=== PATIENT | male | born 1980 | race Caucasian/White ===

== ENCOUNTER 2016-10-30 18:10 | Emergency (ER) | payer MEDICARE, BC ==
[~2016-10-30] VITALS: Ht 165.1 cm; Wt 65.0 kg
[2016-10-30 18:24] VITALS: Ht 165.1 cm; Wt 65.0 kg
[2016-10-30 18:33] LABS: ADD SCAN DIFF NO
[2016-10-30 18:34] LABS: BASOPHILS % 0.2 % (0.0-2.0); HEMATOCRIT 49.6 % (42.0-52.0); LYMPHOCYTES # 1.9 10^3/ul (0.8-2.9); LYMPHOCYTES % 17.1 % (15.0-51.0); MEAN CORPUSCULAR HEMOGLOBIN 31.1 pg (29.0-33.0); MEAN CORPUSCULAR HGB CONC 34.3 g/dl (32.0-37.0); MEAN CORPUSCULAR VOLUME 90.8 fl (82.0-101.0); MONOCYTE # 0.9 10^3/ul (0.3-0.9); MONOCYTES % 8.3 % (0.0-11.0); NEUTROPHIL # 8.2 10^3/ul (1.6-7.5); PLATELET COUNT 292 10^3/UL (140-415); RED BLOOD COUNT 5.46 10^6/ul (4.70-6.10); RED CELL DISTRIBUTION WIDTH 11.5 % (11.5-14.5); WHITE BLOOD COUNT 11.1 10^3/ul (4.8-10.8)
[2016-10-30 18:55] LABS: ALBUMIN 4.9 g/dl (3.3-4.9); ALBUMIN/GLOBULIN RATIO 1.4; BILIRUBIN,INDIRECT 0.5 mg/dl (0-1.1); BILIRUBIN,TOTAL 0.5 mg/dl (0.2-1.3); CALCIUM 9.2 mg/dl (8.4-10.2); CARBAMAZEPINE (TEGRETOL) 4.9 ug/ml (8.0-12.0); CREATININE 0.81 mg/dl (0.61-1.24); POTASSIUM 3.2 mmol/L (3.5-5.1); TOTAL PROTEIN 8.4 g/dl (6.1-8.1)
--- NOTE | 2016-10-30 18:59 | RADRPT ---
PROCEDURE: CT brain without contrast CLINICAL INDICATION: Dizziness, hydrocephalus, status post AUTHORIZATION MANAGER shunt TECHNIQUE: CT of the brain without contrast was performed on a multidetector CT scanner, with multi planar reformats. One or more of the following dose reduction techniques were used: Automated expos ure control, adjustment in mA and / or kV according to patient size, use of iterative reconstructive technique. CTDIvol = 45 mGy; DLP = 900 mGy-cm. 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 Prominence of the extra-axial space continues posterior - inferi amanda on the right along the parasagittal parietal - occipital regions where is also contiguous with the right occipital horn. Temporal horns are not significantly dilated. The posterior fossa is sma ll with descent of the cerebellar tonsils below the expected location of the foramen magnum. The po sterior margin of the foramen magnum appears blunted and there may also be absence of the posterior aspect of C1 with overlying postoperative soft tissue changes likely related to a Chiari decompressi on surgery. The mass intermedia may also be a enlarged. The constellation of findings suggest a Ch iari, possibly Chiari 2 malformation. There is a small calcification in the left frontal periventric ular region. No acute intracranial hemorrhage is identified. No extra-axial fluid collection is seen. No signif icant mass effect or midline shift is identified. Otherwise raygoza-white differentiation is grossly p reserved. The rest of the osseous structures appear intact. Mastoids and imaged paranasal sinuses are grossly clear. IMPRESSION: 1. No acute intracranial pathology identified. 2. Dysmorphic brain detailed above with callosal agenesis/severe dysgenesis, asymmetric enlargement of the lateral ventricles, right greater than left, with right lateral ventricle contiguous with pr ominence of the extra-axial space in the interhemispheric/parasagittal regions, and additional findi ngs suggesting an underlying Chiari malformation. 3. Right transparietal shunt catheter as described above. 4. Small left frontal periventricular calcification, possibly post infectious - inflammatory. 5. Findings suggesting prior Chiari decompression surgery. 6. Correlation with prior imaging is suggested to confirm stability. RPTAT: GG .Migue Oscar MD, Date Time Electronically viewed and signed by .Migue Oscar MD, on 10/30/2016 18:58 .O/
--- NOTE | 2016-10-30 19:45 | ERD ---
ER Documentation Chief Complaint Date/Time DATE: 10/30/16 TIME: 19:44 Chief Complaint HAS BEEN WEAK X 1 WEEK AND FELL TODAY HPI History is supplemented by the primarily caregivers from the alf where he lhas resided for four years with no medical problems. 36-year-old male with a history of SOIL ENGINEER shunt and seizure disorder presents to the ED via ambulance for evaluation of headache and weakness. According to caregivers he has lived in the house for approximately 4 years with no acute complaints. Over the last week he has complained of intermittent headaches and generalized weakness. He apparently had an unwitnessed fall today but denies any injuries. He complains of a mild generalized headache but denies visual changes, focal weakness or numbness. Denies neck or back pain. No chest pain or palpitations. Denies abdominal pain, nausea, vomiting, diarrhea or constipation. No URI symptoms or cough. No seizures. No fevers or chills. ROS All systems reviewed and are negative except as per history of present illness. Medications Home Meds Reported Medications Carbamazepine* (Carbamazepine* XR) 200 Mg Tab.er.12h, 200 MG PO TID, #60 TAB.SA 10/30/16 Allergies Allergies: Coded Allergies: No Known Allergy (Unverified , 10/30/16) PMhx/Soc Reviewed in chart. As per HPI. Lives in a alf. History of Surgery: Yes (SOIL ENGINEER shunt) Hx Neurological Disorder: Yes (Hydrocephalus, seizure disorder) Hx Cardiac Disorders: No Hx Psychiatric Problems: No Hx Miscellaneous Medical Probl: No Hx Alcohol Use: No Hx Substance Use: No Hx Tobacco Use: No FmHx Unknown. Not relevant to presenting complaint. Physical Exam Vitals Vital Signs Date Time Temp Pulse Resp B/P Pulse Ox O2 Delivery O2 Flow Rate FiO2 10/30/16 22:30 98.9 60 16 135/84 98 Room Air 10/30/16 21:01 63 16 145/95 98 Room Air 10/30/16 18:24 98.9 61 18 141/97 100 10/30/16 18:15 61 16 131/66 99 Room Air Physical Exam Const: Alert, anxious. Moderate distress. Head: Atraumatic. SOIL ENGINEER shunt reservoir soft. Eyes: Normal Conjunctiva ENT: Normal External Ears, Nose and Mouth. Neck: Full range of motion. No meningismus. Resp: Clear to auscultation bilaterally Cardio: Regular rate and rhythm, no murmurs Abd: Soft, non tender, non distended. Normal bowel sounds Skin: No petechiae or rashes Back: No midline or flank tenderness Ext: No cyanosis, or edema Neur: Awake and alert. Cooperative. Psych: Normal Mood and Affect Result Diagram: 10/30/16181910/30/161819 Results 24 hrs Laboratory Tests Test 10/30/16 18:20 White Blood Count 11.110^3/ul Red Blood Count 5.4610^6/ul Hemoglobin 17.0g/dl Hematocrit 49.6% Mean Corpuscular Volume 90.8fl Mean Corpuscular Hemoglobin 31.1pg Mean Corpuscular Hemoglobin Concent 34.3g/dl Red Cell Distribution Width 11.5% Platelet Count 25193^3/UL Mean Platelet Volume 10.0fl Neutrophils % 74.0% Lymphocytes % 17.1% Monocytes % 8.3% Eosinophils % 0.0% Basophils % 0.2% Nucleated Red Blood Cells % 0.0/100WBC Neutrophils # 8.210^3/ul Lymphocytes # 1.910^3/ul Monocytes # 0.910^3/ul Eosinophils # 0.010^3/ul Basophils # 0.010^3/ul Nucleated Red Blood Cells # 0.010^3/ul Sodium Level 138mmol/L Potassium Level 3.2mmol/L Chloride Level 98mmol/L Carbon Dioxide Level 29mmol/L Anion Gap 14 Blood Urea Nitrogen 7mg/dl Creatinine 0.81mg/dl Glucose Level 140mg/dl Calcium Level 9.2mg/dl Total Bilirubin 0.5mg/dl Direct Bilirubin 0.00mg/dl Indirect Bilirubin 0.5mg/dl Aspartate Amino Transf (AST/SGOT) 31IU/L Alanine Aminotransferase (ALT/SGPT) 81IU/L Alkaline Phosphatase 106IU/L Total Protein 8.4g/dl Albumin 4.9g/dl Globulin 3.50g/dl Albumin/Globulin Ratio 1.40 Carbamazepine (Tegretol) Level 4.9ug/ml Current Medications Medications (Trade) Dose Ordered Sig/Jose Route PRN Reason Start Time Stop Time Status Last Admin Dose Admin Ketorolac Tromethamine (Toradol) 15 mg ONCE STAT IV 10/30/16 20:08 10/30/16 20:10 DC 10/30/16 20:13 Ondansetron HCl (Zofran Inj) 4 mg ONCE STAT IV 10/30/16 20:08 10/30/16 20:10 DC 10/30/16 20:11 Potassium Chloride (Klor-Con 20) 40 meq ONCE STAT PO 10/30/16 21:34 10/30/16 21:35 DC 10/30/16 21:40 PROCEDURE: CT brain without contrast CLINICAL INDICATION: Dizziness, hydrocephalus, status post SOIL ENGINEER shunt TECHNIQUE: CT of the brain without contrast was performed on a multidetector CT scanner, with multiplanar reformats. One or more of the following dose reduction techniques were used: Automated exposure control, adjustment in mA and / or kV according to patient size, use of iterative reconstructive technique. CTDIvol = 45 mGy; DLP = 900 mGy-cm. 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 Prominence of the extra-axial space continues posterior - inferiorly on the right along the parasagittal parietal - occipital regions where is also contiguous with the right occipital horn. Temporal horns are not significantly dilated. The posterior fossa is small with descent of the cerebellar tonsils below the expected location of the foramen magnum. The posterior margin of the foramen magnum appears blunted and there may also be absence of the posterior aspect of C1 with overlying postoperative soft tissue changes likely related to a Chiari decompression surgery. The mass intermedia may also be a enlarged. The constellation of findings suggest a Chiari, possibly Chiari 2 malformation. There is a small calcification in the left frontal periventricular region. No acute intracranial hemorrhage is identified. No extra-axial fluid collection is seen. No significant mass effect or midline shift is identified. Otherwise raygoza-white differentiation is grossly preserved. The rest of the osseous structures appear intact. Mastoids and imaged paranasal sinuses are grossly clear. IMPRESSION: 1. No acute intracranial pathology identified. 2. Dysmorphic brain detailed above with callosal agenesis/severe dysgenesis, asymmetric enlargement of the lateral ventricles, right greater than left, with right lateral ventricle contiguous with prominence of the extra-axial space in the interhemispheric/parasagittal regions, and additional findings suggesting an underlying Chiari malformation. 3. Right transparietal shunt catheter as described above. 4. Small left frontal periventricular calcification, possibly post infectious - inflammatory. 5. Findings suggesting prior Chiari decompression surgery. 6. Correlation with prior imaging is suggested to confirm stability. RPTAT: GG .Migue Oscar MD, Date Time Electronically viewed and signed by .Migue Oscar MD, on 10/30/2016 18:58 .O/ PROCEDURE: ABDOMEN - 1 VIEW CLINICAL INDICATION: 36-year-old male for ventriculoperitoneal shunt evaluation. TECHNIQUE: AP supine view of the abdomen was performed. The images reviewed on a PACS workstation. COMPARISON: Chest x-ray October 30, 2016. FINDINGS: There is a mild right pleural effusion. There is evidence for two ventriculoperitoneal shunt tubes ending within the right upper quadrant. There is a single ventriculoperitoneal shunt tubing identified within the midline of the abdomen continuing into the pelvic region. The tubing is noted to be seen within the left char pelvis. Retained stool is identified throughout the colon without an obstructive pattern. A phlebolith is seen within the left hemipelvis. The osseous structures are unremarkable. IMPRESSION: 1. Mild right pleural effusion. 2. Two ventriculoperitoneal shunt tubes ending within the right upper quadrant. 3. Shunt tubing within the midline of the upper abdomen continuing into the pelvic region with the tubing into the left hemipelvis region. 4. Retained stool. .Da Teixeira MD, Date Time Electronically viewed and signed by .Da Teixeira MD, on 10/30/2016 22:20 .M/ PROCEDURE: XR Chest. CLINICAL INDICATION: shunt continuity TECHNIQUE: AP Portable chest. COMPARISON: No pertinent prior examinations were submitted for comparison. FINDINGS: The cardiomediastinal silhouette is normal. There is mild opacity at the right lung base likely due to atelectasis and effusion. The osseous structures are unremarkable. A ventricular pleural shunt catheter is visualized within the right neck and chest. There is discontinuity of the catheter at the level of the second medial rib. The pieces are by at least 5 mm. Some kinking of the catheter is also noted within the right neck. IMPRESSION: Disrupted ventricular pleural shunt catheter. RPTAT: HIKT .Elliot Sabillon MD, MD Date Time Electronically viewed and signed by .Elliot Sabillon MD, MD on 10/30/2016 22:11 .T/ Procedures/MDM DOCUMENTS REVIEWED: ED nurse, no prior records available CALLS/CONSULTS: Time:20:15. Dr Rose. N/A at 22:00 MEDICAL DECISION MAKIN-year-old male with a history of hydroceohalus, SOIL ENGINEER shunt placed over 15-20 years ago and seizure disorder presents to the ED via ambulance for evaluation of headache and weakness. CT findings as above. Discussed with the radiologist. Although there is no previous CT available for comparison there does not appear to be any signs of acute hydrocephalus. Plain radiographs of the chest and abdomen reveal evidence of disrupted SOIL ENGINEER shunt. No fever, meningismus evidence of meningitis or encephalitis. Symptoms resolved completely with Toradol and Zofran. Carbamazepine level is subtherapeutic but no seizures. A 21:15 he is doing well no further headache. At 22:00 awaiting call from neurosurgery. Although the patient's presentation is consistent with SOIL ENGINEER shunt malfunction he adamantly wants to go home and will follow up with neurology/neurosurgery tomorrow. Caregiver agrees with this plan although they clearly understand that I disagree and would prefer admission for further inpatient evaluation and mangement as his sympyoms may detereorate rapidly.As there are insistent and cannot ensure emergent neurosurgical intervention tonight they insist on discharge with urgent outpatient followup tomorrow. Will discharge with precautionary instructions and urgent outpatient neurology/ neurosurgery follow-up as counseled. Patient and caregiver understand that his symptoms are due to failure of his SOIL ENGINEER shunt which needs to be revised urgently. If they are not able to obtain urgent follow-up or symptoms worsen patient is to return to the ED immediately. He is at risk for significantl rapid deterioration presenting as worsening symptoms including, headache, ataxia, seizures and ALOC which could resuly in herniation and/or permanent neurologic disability or . Again any worsening symptoms should be taken extremely seriously and mandate emergent return to the hospital. Counseled patient and caregiver regarding diagnostic workup, diagnosis and need for followup. They clearly understand that they are disobeying my advice for admission. Furthermore the have verbalized understanding need for urgent outpatient followup and return to ED immediately if symptoms recur, worsen or any other concerns. I fully expect patient to return within 24hours. Departure Diagnosis: Primary Impression: Malfunction of ventriculo-peritoneal shunt Encounter type: initial encounter Qualified Code: T85.09XA - Malfunction of ventriculo-peritoneal shunt, initial encounter Additional Impressions: SOIL ENGINEER (ventriculoperitoneal) shunt status Arnold-Chiari syndrome with hydrocephalus Cephalgia Headache type: unspecified Headache chronicity pattern: episodic headache Intractability: not intractable Qualified Code: R51 - Nonintractable episodic headache, unspecified headache type Weakness Seizure disorder Condition: Stable ZACH HUNTER MD Oct 30, 2016 19:45
[2016-10-30] MEDS ORDERED: CARB200T43 PO (19:53)
[2016-10-30] MEDS ORDERED: KETOROLAC 15 MG INJ IV STA (20:08)
[2016-10-30] MEDS ORDERED: ONDANSETRON 4 MG INJ IV STA (20:08)
[2016-10-30] MEDS ORDERED: POTASSIUM CHLORIDE (SR) 20 MEQ TAB PO STA (21:34)
--- NOTE | 2016-10-30 22:12 | RADRPT ---
PROCEDURE: XR Chest. CLINICAL INDICATION: shunt continuity TECHNIQUE: AP Portable chest. COMPARISON: No pertinent prior examinations were submitted for comparison. FINDINGS: The cardiomediastinal silhouette is normal. There is mild opacity at the right lung base likely due to atelectasis and effusion. The osseous structures are unremarkable. A ventricular pleural shunt catheter is visualized within the right neck and chest. There is discon tinuity of the catheter at the level of the second medial rib. The pieces are by at least 5 mm. Some kinking of the catheter is also noted within the right neck. IMPRESSION: Disrupted ventricular pleural shunt catheter. RPTAT: HIKT .Elliot Sabillon MD, MD Date Time Electronically viewed and signed by .Elliot Sabillon MD, on 10/30/2016 22:11 .T/
--- NOTE | 2016-10-30 22:20 | RADRPT ---
PROCEDURE: ABDOMEN - 1 VIEW CLINICAL INDICATION: 36-year-old male for ventriculoperitoneal shunt evaluation. TECHNIQUE: AP supine view of the abdomen was performed. The images reviewed on a PACS workstatio n. COMPARISON: Chest x-ray October 30, 2016. FINDINGS: There is a mild right pleural effusion. There is evidence for two ventriculoperitoneal sh unt tubes ending within the right upper quadrant. There is a single ventriculoperitoneal shunt tubi ng identified within the midline of the abdomen continuing into the pelvic region. The tubing is not ed to be seen within the left char pelvis. Retained stool is identified throughout the colon without an obstructive pattern. A phlebolith is seen within the left hemipelvis. The osseous structures ar e unremarkable. IMPRESSION: 1. Mild right pleural effusion. 2. Two ventriculoperitoneal shunt tubes ending within the right upper quadrant. 3. Shunt tubing within the midline of the upper abdomen continuing into the pelvic region with the tubing into the left hemipelvis region. 4. Retained stool. .Da Teixeira MD, Date Time Electronically viewed and signed by .Da Teixeira MD, on 10/30/2016 22:20 .M/
[2016-10-30 22:30] VITALS: BP 135/84; PULSE 60; RESP 16; TEMP 98.9
== END 2016-10-30 22:30 | disposition home or self-care (01) ==
LOC: E/R 18:10
DX: T85.09XA Other mechanical complication of ventricular intracranial (communicating) shunt, initial encounter (principal); Q07.02 Arnold-Chiari syndrome with hydrocephalus; R51 Headache; G40.909 Epilepsy, unspecified, not intractable, without status epilepticus; Y75.8 Miscellaneous neurological devices associated with adverse incidents, not elsewhere classified; Z98.2 Presence of cerebrospinal fluid drainage device
CPT/HCPCS: 70450; 71010; 74000; 80053; 80156; 85025; J1885; J2405; 36415; 96374; 96375

== ENCOUNTER 2016-10-31 08:49 | Inpatient (IN) | payer MEDICARE, BC ==
[~2016-10-31] VITALS: Ht 167.6 cm; Wt 66.0 kg
[~2016-10-31 08:49] MED LIST: CARB200T43 PO
[2016-10-31 09:01] VITALS: Ht 167.6 cm; Wt 66.0 kg
[2016-10-31] MEDS ORDERED: ACETAMINOPHEN 325 MG TAB PO ONE (10:00)
--- NOTE | 2016-10-31 10:52 | RADRPT ---
PROCEDURE: Chest Radiograph. CLINICAL INDICATION: Chest and abdominal pain. TECHNIQUE: Single frontal chest radiograph. COMPARISON: Chest radiograph 10/30/2016 FINDINGS: The patient is rotated. Heart size is poorly evaluated but appears grossly within normal limits. A left lung is clear. There is worsening opacification of the right lung base consistent with worseni ng pleural effusion and/or adjacent atelectasis/infiltrate. A catheter is overlying the left neck as well as redundant catheters overlying the left chest wall. These are stable compared to prior s tudy. IMPRESSION: 1. Mildly worsening right basilar pleural / parenchymal disease when compared to 10/30/2016. 2. Otherwise stable radiographic appearance of the chest. RPTAT: KK .Evangelist Srinivasan MD, MD Date Time Electronically viewed and signed by .Evangelist Srinivasan MD, on 10/31/2016 10:51 .B/
[2016-10-31 10:55] LABS: ADD SCAN DIFF NO
[2016-10-31 11:04] LABS: BASOPHILS % 0.2 % (0.0-2.0); EOSINOPHILS % 0.1 % (0.0-7.0); HEMATOCRIT 46.4 % (42.0-52.0); HEMOGLOBIN 16.3 g/dl (14.0-18.0); LYMPHOCYTES # 1.4 10^3/ul (0.8-2.9); LYMPHOCYTES % 12.7 % (15.0-51.0); MEAN CORPUSCULAR HEMOGLOBIN 32.1 pg (29.0-33.0); MEAN CORPUSCULAR HGB CONC 35.1 g/dl (32.0-37.0); MEAN CORPUSCULAR VOLUME 91.3 fl (82.0-101.0); MONOCYTES % 9.3 % (0.0-11.0); NEUTROPHIL # 8.5 10^3/ul (1.6-7.5); NEUTROPHILS % 77.2 % (39.0-77.0); PLATELET COUNT 288 10^3/UL (140-415); RED BLOOD COUNT 5.08 10^6/ul (4.70-6.10); RED CELL DISTRIBUTION WIDTH 11.4 % (11.5-14.5)
[2016-10-31 11:24] LABS: INR 1.11; PROTIME 14.3 Sec (12.2-14.2); PT RATIO 1.1
[2016-10-31 11:25] LABS: PARTIAL THROMBOPLASTIN TIME 26.3 Sec (25.0-35.0)
[2016-10-31 11:27] LABS: ANION GAP 14 (8-16); BLOOD UREA NITROGEN 7 mg/dl (7-20); CARBON DIOXIDE 29 mmol/L (21-31); CHLORIDE 99 mmol/L (97-110); GLUCOSE 141 mg/dl (70-220); POTASSIUM 3.5 mmol/L (3.5-5.1); SODIUM 138 mmol/L (135-144)
[2016-10-31 11:48] LABS: TROPONIN-I < 0.012 ng/ml (0.00-0.12)
[2016-10-31] MEDS ORDERED: ONDANSETRON 4 MG INJ IV PRN ×2 (13:00→16:00)
[2016-10-31] MEDS ORDERED: ACETAMINOPHEN 325 MG TAB PO PRN (13:00)
--- NOTE | 2016-10-31 13:37 | ERA ---
ER Documentation Chief Complaint Date/Time DATE: 10/31/16 TIME: 13:34 Chief Complaint BIBA C/O BACK PAIN 08/26; HX CHRONIC BACK PAIN. HPI Patient is a 36-year-old male with a history of a SAMPLE PREPARATION SUPERVISOR shunt and back pain who presents with headache and back pain. The patient was seen here yesterday for the same and signed out AGAINST MEDICAL ADVICE as Dr. Carlos want the patient to be admitted. He had a workup for his SAMPLE PREPARATION SUPERVISOR shunt which did show breakages in the shunt line. CT scan of the brain done yesterday shows no obvious hydrocephalus per radiology. The patient was brought in by ambulance today for continued back pain. He now wants to be admitted. ROS All systems reviewed and are negative except as per history of present illness. Medications Home Meds Reported Medications Carbamazepine* (Carbamazepine* XR) 200 Mg Tab.er.12h, 200 MG PO TID, #60 TAB.SA 10/30/16 Allergies Allergies: Coded Allergies: No Known Allergy (Unverified , 10/31/16) PMhx/Soc History of Surgery: Yes (SAMPLE PREPARATION SUPERVISOR shunt) Anesthesia Reaction: No Hx Neurological Disorder: Yes (Hydrocephalus, seizure disorder) Hx Respiratory Disorders: No Hx Cardiac Disorders: No Hx Psychiatric Problems: No Hx Miscellaneous Medical Probl: No Hx Alcohol Use: No Hx Substance Use: No Hx Tobacco Use: No Smoking Status: Never smoker FmHx Family History: No diabetes Physical Exam Vitals Vital Signs Date Time Temp Pulse Resp B/P Pulse Ox O2 Delivery O2 Flow Rate FiO2 10/31/16 13:10 71 18 126/71 99 Room Air 10/31/16 11:15 68 18 140/90 99 Room Air 10/31/16 09:01 98.6 60 16 145/88 99 Physical Exam Const: Mild distress secondary to pain Head: Atraumatic Eyes: Normal Conjunctiva ENT: Normal External Ears, Nose and Mouth. Neck: Full range of motion..~ No meningismus. Resp: Clear to auscultation bilaterally Cardio: Regular rate and rhythm, no murmurs Abd: Soft, non tender, non distended. Normal bowel sounds Skin: No petechiae or rashes Back: No midline or flank tenderness Ext: No cyanosis, or edema Neur: Awake and alert, able to ambulate Psych: Depressed affect Result Diagram: 10/31/16 1040 10/31/16 1040 Results 24 hrs Laboratory Tests Test 10/31/16 10:40 White Blood Count 11.010^3/ul Red Blood Count 5.0810^6/ul Hemoglobin 16.3g/dl Hematocrit 46.4% Mean Corpuscular Volume 91.3fl Mean Corpuscular Hemoglobin 32.1pg Mean Corpuscular Hemoglobin Concent 35.1g/dl Red Cell Distribution Width 11.4% Platelet Count 56844^3/UL Mean Platelet Volume 10.0fl Neutrophils % 77.2% Lymphocytes % 12.7% Monocytes % 9.3% Eosinophils % 0.1% Basophils % 0.2% Nucleated Red Blood Cells % 0.0/100WBC Neutrophils # 8.510^3/ul Lymphocytes # 1.410^3/ul Monocytes # 1.010^3/ul Eosinophils # 0.010^3/ul Basophils # 0.010^3/ul Nucleated Red Blood Cells # 0.010^3/ul Prothrombin Time 14.3Sec Prothrombin Time Ratio 1.1 INR International Normalized Ratio 1.11 Activated Partial Thromboplast Time 26.3Sec Sodium Level 138mmol/L Potassium Level 3.5mmol/L Chloride Level 99mmol/L Carbon Dioxide Level 29mmol/L Anion Gap 14 Blood Urea Nitrogen 7mg/dl Creatinine 0.80mg/dl Glucose Level 141mg/dl Calcium Level 9.0mg/dl Troponin I < 0.012ng/ml Current Medications Medications (Trade) Dose Ordered Sig/Jose Route PRN Reason Start Time Stop Time Status Last Admin Dose Admin Acetaminophen (Tylenol Tab) 650 mg ONCE ONCE PO 10/31/16 10:00 10/31/16 10:01 DC 10/31/16 09:45 Ondansetron HCl (Zofran Inj) 4 mg BRIDGE ORDER PRN IV NAUSEA AND/OR VOMITING 10/31/16 13:00 11/01/16 12:59 Acetaminophen (Tylenol Tab) 650 mg ER BRIDGE PRN PO MILD PAIN/FEVER 10/31/16 13:00 11/01/16 12:59 Procedures/MDM EKG read by me: Rate/Rhythm: Regular rate and rhythm at a normal rate Intervals: Normal Impression: No evidence of ischemia or arrhythmia Laboratory studies show a mild leukocytosis but no other abnormalities. I spoke with Dr. Rose who is the surgeon promotion officer. He said that he would be happy to consult on the patient but is unsure if the patient would require repeat surgery at this time. He said without significant altered mental status the SAMPLE PREPARATION SUPERVISOR shunt may not be required any longer. I spoke with Dr. Chappell from the panel team for admission to a medical surgical bed. At this point I see no signs of serious infection or sepsis. Departure Diagnosis: Primary Impression: SAMPLE PREPARATION SUPERVISOR (ventriculoperitoneal) shunt status Additional Impression: Back pain Qualified Code: M54.5 - Acute low back pain, unspecified back pain laterality , with sciatica presence unspecified Condition: Fair Patient Instructions: Back Pain (Acute Or Chronic) Referrals: PADMA SIMS (PCP) SHANELL ROSE MD Additional Instructions: SPECIALIST: YOU HAVE A MEDICAL CONDITION WHICH REQUIRES YOU TO SEE A SPECIALIST WITHIN THE NEXT 1-2 DAYS. PLEASE FOLLOW UP WITH YOUR PRIMARY PHYSICIAN FOR REFFERAL.IF YOU DO NOT HAVE A PRIMARY CARE PHYSICIAN AND/OR YOU CAN NOT AFFORD TO SEE A PHYSICIAN THE FOLLOWING RESOURCES HAVE BEEN SUPPLIED TO YOU. IT IS YOUR RESPONSIBILITY TO BE SEEN BY THE SPECIALIST NITISH BELLAMY MD Oct 31, 2016 13:36
[2016-10-31 15:05] VITALS: TEMP 98.6
[2016-10-31] MEDS ORDERED: BISACODYL (EC) 5 MG TAB PO PRN (16:00)
[2016-10-31] MEDS ORDERED: NACL 0.9% 3 ML SYG IV SCH (16:00)
[2016-10-31] MEDS ORDERED: MAGNESIUM HYDROXIDE 30ML CUP PO PRN (16:00)
[2016-10-31] MEDS: HYDROCODONE/APAP (5/325) TAB PO PRN ×2 (16:11→22:28)
--- NOTE | 2016-10-31 18:11 | HP ---
DATE OF ADMISSION: 10/31/2016 TIME OF EVALUATION: 1640. REASON FOR ADMISSION: Headache and back pain. CONSULTATIONS: SHANELL THOMPSON MD. HISTORY OF PRESENT ILLNESS: This is a 36-year-old male patient with past medical history of hydrocephalus status post SEASONAL DRIVER shunt and seizure disorder who came to the emergency room with complaint of back pain and headache. The patient came to the emergency room on 10/30/2016 with similar complaints. The patient left the hospital against medical advice on 10/30/2016. The patient came back on 10/31/2016 because of similar headache and back pain. The patient verbalized that he has been having a headache and back pain for 1 week or so. The patient also verbalized an apparent fall at the facility where he lives. He denied any injuries. The patient denied any nausea, vomiting, abdominal pain , diarrhea, hematochezia or dysuria. He denied any focal weaknesses or numbness. In the emergency room, the patient underwent a brain CT scan on 10/30/2016 and that showed dysmorphic brain with callosal agenesis/severe dysgenesis, asymmetric enlargement of the lateral ventricles, right greater than left with the right lateral ventricle, contiguous with prominence of extraaxial spaces and interhemispheric/parasagittal regions. Additional findings suggesting an underlying Chiari malformation with right-sided transparietal shunt catheter. The CT also reveals small left frontal periventricular calcifications. The patient also had an abdominal x-ray done on 10/30/2016 that showed mild right pleural effusion with 2 separate ventriculoperitoneal shunt tube extending within the right upper quadrant and shunt tubing with no midline of the upper quadrant, continuing to the pelvis region with the tubing into the left hemipelvis region. The patient was treated with a single dose of Tylenol in the emergency room. The ER physician called the neurosurgeon administrative receptionist and as per the neurosurgeon, the patient will be seen by them today. PAST MEDICAL HISTORY: Seizure disorder, hydrocephalus. PAST SURGICAL HISTORY: SEASONAL DRIVER shunt placement. HOME MEDICATIONS: Carbamazepine XR 200 mg p.o. t.i.d. ALLERGIES: NO KNOWN DRUG ALLERGIES. SOCIAL HISTORY: The patient lives in a fpc. Denies any history of tobacco, alcohol or illicit drug use. REVIEW OF SYSTEMS: A 12-point review of systems were made and review of systems was negative other than what is mentioned in the history of present illness. PHYSICAL EXAMINATION: VITAL SIGNS: Temperature 98.6, pulse rate 76, respiratory rate 18, blood pressure 132/76, oxygen saturation 99% on room air. GENERAL: This is a 36-year-old male patient lying in bed in no apparent distress. HEENT: Head normocephalic and atraumatic. Eyes: Anicteric sclerae. Conjunctivae clear. ENT: Nasal septum is midline. Oral mucosa is dry. NECK: Supple. No JVD noticed. RESPIRATORY: Bilaterally clear to auscultation. No adventitious breath sounds. No use of accessory muscles of respiration. CARDIAC: Regular rate and rhythm. S1, S2 heard. GASTROINTESTINAL: Abdomen soft, nontender. EXTREMITIES: The patient has surgical scars are on the abdomen. Bowel sounds hypoactive in all 4 quadrants. GENITOURINARY: Deferred. EXTREMITIES: No cyanosis, no clubbing, no edema. Peripheral pulses palpable. NEUROLOGIC: The patient is awake, alert and oriented. Cranial nerves are grossly intact. LABORATORY AND DIAGNOSTIC DATA: WBC 11.0, hemoglobin 16.3, hematocrit 46.4, platelet count 288. Sodium 130, potassium 3.5, chloride 99, carbon dioxide 29, anion gap 14, BUN 7, creatinine 0.80, glucose 141, calcium 9.0, creatinine 0.8, glucose 141, calcium 9.0. Troponin less than 0.01. PT 14.3, INR 1.19, PTT 26.3. Chest x-ray: Mildly worsening right basilar pleural/parenchymal disease when compared to 10/30/2016. Otherwise, stable radiographic appearance of the chest. Brain CT scan from 10/30/2016: Dysmorphic pain with callosal agenesis/severe dysgenesis, asymmetric enlargement of the lateral ventricles, right greater than left with right lateral ventricle contiguous with prominence of extraaxial spaces in the interhemispheric/parasagittal regions. Right transparietal shunt catheter. Small left frontal periventricular calcification. Findings suggesting prior Chiari decompression surgery. Abdominal x-ray. Mild right pleural effusion. ventriculoperitoneal shunt tubes ending within the right upper quadrant. IMPRESSION: This is a 36-year-old male with past medical history of ventriculoperitoneal shunt secondary to hydrocephalus from Chiari malformation who came to the emergency room with chief complaint of headache and back pain that has been going on for the past 1 week. He will be admitted here for further treatment and evaluation. ASSESSMENT AND PLAN 1. Intractable back pain and headache. Etiology unclear. A brain CT scan was negative for any acute findings. The patient will be provided with adequate pain control. A neurosurgery consult was already called by the ER physician. 2. Seizure disorder. The patient will be continued on anticonvulsants. 3. Minimal leukocytosis. Most probably reactive in origin. We will monitor. Plan. The patient will be admitted to inpatient medical/surgical floor. The patient will be started on deep venous thrombosis prophylaxis and gastrointestinal prophylaxis. The patient will remain a full code. Activity will be as tolerated. The rest of the patient's management will be based on clinical course, the results of diagnostic studies, and inputs from consultants. Based on the patient's clinical condition, he most probably requires at least 1 midnight's stay for further management and evaluation of his clinical presentation. The case and management of this patient was fully discussed with Dr. Zazueta. MIGDALIA ZAZUETA MD, AM/RUFINO Conf#: [id number] DID#: [id number] MTDD
--- NOTE | 2016-10-31 18:37 | CONS ---
Date/Time of Note Date/Time of Note DATE: 10/31/16 TIME: 18:24 Assessment/Plan Assessment/Plan Problems: (1) Back pain Status: Acute Qualifiers: Qualified Code: M54.5 - Acute low back pain, unspecified back pain laterality, with sciatica presence unspecified Additional Assessment/Plan Back pain and headache in a patient with long-standing hydrocephalus sp/p VPS in 2003. I am concerned that the patient may be presenting with an early form of shunt failure. His mother relates that last time his shunt failed he had progressive headaches, nausea and vomiting. He has not had back pain before. Nevertheless, I would like to better image the shunt system with a CT/Abd/ Pelvis to trace the current system and confirm its integrity. If broken then the shunt will need to be revised. In the meantime, the patient's stepmother will bring his prior CT scans on CT for comparison. His back pain should be worked up independently of the VPS failure workup. 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 Per stepmo patient shunt was last revised in 2003. He had severe headache at that time. He is developmentally delayed and is a prison resident. He recently had a syncope, and also some nausea and vomiting, and was diagnosed with 'the flu' by his PCP. He was brought to ED last night from prison complaining of back pain, left the ER and returned today. He states his back pain is 4/10. He cannot identify any exacerbating or alleviating factors. He also complains of headache, also 4/10. He denies any nausea at the present time. Past Medical History seizure disorder Social History Smoking Status: Never smoker Exam/Review of Systems Vital Signs Vitals Vital Signs Date Time Temp Pulse Resp B/P Pulse Ox O2 Delivery O2 Flow Rate FiO2 10/31/16 15:05 98.6 76 18 132/76 99 Room Air Exam The patient is awake and alert. He is developmentally delayed but follows commands and is able to related some relevant details of his personal medical history. He is moving all extremities 5/5. He denies any hypoesthesia or anaesthesia. His cranial nerve exam is notable for dysconjugate gaze. His face is symmetric. His speech is clear. Results CT of the head on 10/30 shows markedly abnormal ventricular system, with shunt catheter in good position. Shunt series xray has been interpreted as showing discontinuity of the distal shunt tubing, but to my eye this is hard to resolve as it appears the prior shunt system may have been retained. The reservoir for the catheter pumps and refills briskly. Result Diagram: 10/31/16 1040 10/31/16 1040 Results 24 hrs Laboratory Tests Test 10/31/16 10:40 White Blood Count 11.0 H Red Blood Count 5.08 Hemoglobin 16.3 Hematocrit 46.4 Mean Corpuscular Volume 91.3 Mean Corpuscular Hemoglobin 32.1 Mean Corpuscular Hemoglobin Concent 35.1 Red Cell Distribution Width 11.4 L Platelet Count 288 Mean Platelet Volume 10.0 Neutrophils % 77.2 H Lymphocytes % 12.7 L Monocytes % 9.3 Eosinophils % 0.1 Basophils % 0.2 Nucleated Red Blood Cells % 0.0 Neutrophils # 8.5 H Lymphocytes # 1.4 Monocytes # 1.0 H Eosinophils # 0.0 Basophils # 0.0 Nucleated Red Blood Cells # 0.0 Prothrombin Time 14.3 H Prothrombin Time Ratio 1.1 INR International Normalized Ratio 1.11 Activated Partial Thromboplast Time 26.3 Sodium Level 138 Potassium Level 3.5 Chloride Level 99 Carbon Dioxide Level 29 Anion Gap 14 Blood Urea Nitrogen 7 Creatinine 0.80 Glucose Level 141 Calcium Level 9.0 Troponin I < 0.012 Medications Medications Current Medications Ondansetron HCl (Zofran Inj) 4 mg Q6H PRN IV NAUSEA AND/OR VOMITING; Start at 16:00 Acetaminophen (Tylenol Tab) 650 mg Q6H PRN PO PAIN LEVEL 1-3 OR FEVER; Start at 16:00 Acetaminophen/ Hydrocodone Bitart ([place] (5/325)) 1 tab Q6H PRN PO MODERATE PAIN LEVEL 4-6 Last administered on 10/31/16t 16:11; Admin Dose 1 TAB; Start at 16:00 Morphine Sulfate (morphine) 2 mg Q4H PRN IV SEVERE PAIN LEVEL 7-10; Start 10/31 at 16:00 Magnesium Hydroxide (Milk Of Mag) 30 ml DAILY PRN PO CONSTIPATION; Start at 16:00 Bisacodyl (Dulcolax) 5 mg DAILY PRN PO CONSTIPATION; Start 10/31/16 at 16:00 Famotidine (Pepcid) 20 mg Q12 PO ; Start 10/31/16 at 21:00 Carbamazepine (Tegretol Xr) 200 mg TID PO ; Start 10/31/16 at 21:00 Lorazepam (Ativan) 1 mg Q2H PRN IV Seizures; Start 10/31/16 at 17:30 SHANELL THOMPSON MD Oct 31, 2016 18:36
[2016-10-31 20:00] VITALS: BP 145/83; PULSE 70; RESP 19
[2016-10-31 20:06] VITALS: BP 145/83; RESP 19
--- NOTE | 2016-10-31 20:49 | RADRPT ---
PROCEDURE: CT Chest, Abdomen and Pelvis. CLINICAL INDICATION: Shunt system breakage TECHNIQUE: CT scan of the chest, abdomen, and pelvis without intravenous contrast was performed on the [employer] volumetric [address] scanner. Coronal and sagittal reformatted images were obtained from the axial source images. The images were reviewed on a high-resolution PACS workstation. The CTDI vo l is 7.6 mGy and the DLP is 581.73 mGy-cm. COMPARISON: None. FINDINGS: CT chest: A mild to moderate size right pleural effusion is seen. A right pleural thickening is seen with ate lectasis in the right lower lobe and right middle lobe. A catheter seen in the right pleural space. A right-sided ventriculoperitoneal shunt is seen traversing the right chest wall. Separation of t he catheter is seen at the level of the right sternoclavicular joint. Approximately 10 mm of separat ion of the catheter is seen. The mediastinum is unremarkable without evidence for mass or lymphadenopathy. The vascular structur es of the mediastinum are normal in course and caliber. No abnormally enlarged lymph nodes in the m ediastinum or hilum is seen. The heart size is normal and is without evidence for pericardial thic kening or effusion. The axillary regions, subpectoral regions, and supraclavicular regions are all u nremarkable. The osseous structures are intact. CT abdomen: The right-sided ventriculoperitoneal shunt is seen entering the anterior abdominal wall. A focal ar ea of increased soft tissue density around the catheter is seen at the L3 level. The liver is normal in size and density without focal mass or intrahepatic biliary dilatation. The spleen is normal in size and homogeneous in density. The stomach is grossly unremarkable. The pancreas as visualized is normal. The gallbladder and biliary tree are unremarkable and there is no evidence for biliary d ilatation. The adrenal glands are symmetric and normal. The kidneys are symmetrically unremarkable as well. No renal calculus or obstructive uropathy or mass lesion is seen. The aorta is of normal caliber. There is no retroperitoneal lymphadenopathy. The tristan hepatis region is clear. The large bowel is stool-filled. The small and large bowel and mesentery, as visualized, are otherwise unrema rkable. The normal appendix is identified. CT pelvis: The right-sided ventriculoperitoneal shunt catheter is seen with the tip in the pelvis. The pelvic organs are normal. The pelvic sidewalls and inguinal regions are clear. No pelvic mass, lymphadenop athy, or focal fluid collection is seen. There is no free fluid. No acute inflammation is seen. The surrounding osseous structures are grossly unremarkable. No osteolytic or osteoblastic lesion is d etected. IMPRESSION: 1. Right ventriculoperitoneal shunt catheter which is at the level of the right sternocla vicular joint. 2. Mild to moderate size right pleural effusion with pleural thickening which may represent an empy earnestine. In addition, a catheter within the right pleural effusion is seen. RPTAT: HPNM Physician Sandra Date Time Electronically viewed and signed by Physician Sandra on 10/31/2016 20:49 /
[2016-10-31] MEDS ORDERED: carBAMAZepine (XR) 200 MG TABSR PO SCH (21:00)
--- NOTE | 2016-10-31 21:28 | RADRPT ---
PROCEDURE: CT Chest, Abdomen, and Pelvis Without Contrast CLINICAL INDICATION: Shunt system brain. TECHNIQUE: Transaxial images were obtained through the chest, abdomen, and pelvis on a multi-slice scanner without the intravenous administration of iodinated contrast. No oral contrast had previou sly been given. Sagittal and coronal re-formations were subsequently reconstructed. One or more of the following dose reduction techniques were used: - Automated exposure control. - Adjustment of the mA and/or kV according to patient size. - Use of iterative reconstruction technique. Radiation dose: CTDIvol = 7.60 mGy; DLP = 581.73 mGy-cm. COMPARISON: No prior studies are available for comparison. FINDINGS: CHEST: Lung harrington: Subsegmental atelectasis is seen in the right lower lobe. Pleural spaces: There is a moderate gravitating right pleural fluid accumulation at measures approxi mately 10 HU. No pneumothorax is evident. A right-sided LPN INSTRUCTOR shunt catheter is seen to be coiled wit hin the right pleural space extending from the apex to the lung base. Lymph nodes: No pathologically enlarged nodes are evident. Cardiovascular structures: The heart is normal in size. The aorta appears intact and normal in florencia bartolo. Thyroid: Unremarkable Osseous structures: The osseous elements appear intact. There is an exaggerated kyphotic curvature to the thoracic spine with mild degenerative endplate changes noted. Soft tissues: A blind ending portion of the shunt catheter is seen within the right anterior neck and extends to the right anterior superior chest wall anterior to the medial right clavicle. A cath eter and then begins in the right anterior chest wall and extends into the intraperitoneal cavity wi th the tip seen in the left lower quadrant within the pelvis. ABDOMEN: Liver: Normal in size and in attenuation. There is no focal lesion. Gallbladder: The wall is not thickened. No radiopaque stones are identified. Bile ducts: The intra and extrahepatic bile ducts are normal in caliber. Pancreas: Appears normal with no mass or inflammation evident. Spleen: Normal in size with no focal lesion. Adrenals: Normal with no mass identified. Kidneys, ureters and bladder: The kidneys appear normal in size and there is no mass, pathological c alcification, or hydronephrosis evident. There is no perinephric stranding. The ureter is are timbo l in caliber and no ureteroliths are identified. The bladder appears unremarkable. Reproductive organs: Unremarkable. Stomach, rossy, and Mesenteryl: The stomach is moderately distended with food debris. There is subst antial stool seen in the right colon. There is no evidence of bowel obstruction or inflammation. Appendix: There are no findings to suggest appendicitis. Peritoneum: No free intraperitoneal fluid or air is identified. A LPN INSTRUCTOR shunt catheter extends through the intraperitoneal cavity with the tip in the left pelvis. No mass is seen at the tip of the chioma ter. Aorta: Normal in caliber with no aneurysmal dilatation. IVC: Unremarkable. Lymph nodes: No pathologically enlarged nodes are identified. Osseous structures: The osseous elements appear intact. IMPRESSION: 1. A the right-sided LPN INSTRUCTOR shunt catheter is seen within the superficial soft tissues of the right lat eral neck and terminates at the right anterior chest anterior to the medial right clavicle. A cathet er then began is more inferiorly within the right anterior chest wall, extends inferiorly entering t he intraperitoneal cavity with the tip located within the left pelvis. An elongated LPN INSTRUCTOR shunt cathete r is seen to be coiled within the right pleural space. 2. There is a moderate gravitating right pleural fluid accumulation at measures 10 HU. Subsegmenta l atelectatic changes seen in the right lower lobe. 3. There is no free intraperitoneal fluid or air. 4. The stomach is moderately distended with food debris, substantial stool seen within the colon bu t there is no evidence of bowel obstruction or inflammation. 5. Exaggerated kyphotic curvature to the thoracic spine with mild degenerative endplate changes. Physician Heber Date Time Electronically viewed and signed by Physician Heber on 10/31/2016 21:28 /
[2016-10-31] MEDS: ACETAMINOPHEN 325 MG TAB PO PRN (21:31)
[2016-10-31] MEDS: FAMOTIDINE 20 MG TAB PO SCH (21:32)
[2016-10-31] MEDS: carBAMAZepine (XR) 100 MG TABSR PO SCH (21:33)
[2016-11-01] MEDS: morphine 2 MG INJ IV PRN ×2 (01:59→18:40)
[2016-11-01 05:50] LABS: ADD SCAN DIFF NO
[2016-11-01 06:25] LABS: BASOPHILS % 0.2 % (0.0-2.0); EOSINOPHILS % 0.1 % (0.0-7.0); HEMATOCRIT 46.4 % (42.0-52.0); HEMOGLOBIN 15.7 g/dl (14.0-18.0); LYMPHOCYTES # 1.8 10^3/ul (0.8-2.9); LYMPHOCYTES % 17.1 % (15.0-51.0); MEAN CORPUSCULAR HEMOGLOBIN 31.2 pg (29.0-33.0); MEAN CORPUSCULAR HGB CONC 33.8 g/dl (32.0-37.0); MEAN CORPUSCULAR VOLUME 92.1 fl (82.0-101.0); MEAN PLATELET VOLUME 10.6 fl (7.4-10.4); MONOCYTE # 0.8 10^3/ul (0.3-0.9); MONOCYTES % 7.4 % (0.0-11.0); NEUTROPHIL # 7.6 10^3/ul (1.6-7.5); NEUTROPHILS % 74.8 % (39.0-77.0); PLATELET COUNT 263 10^3/UL (140-415); RED BLOOD COUNT 5.04 10^6/ul (4.70-6.10); RED CELL DISTRIBUTION WIDTH 11.8 % (11.5-14.5); WHITE BLOOD COUNT 10.2 10^3/ul (4.8-10.8)
[2016-11-01 06:57] LABS: CHOL/HDL RATIO 2.7 RATIO; CHOLESTEROL 136 mg/dl (100-200); HDL CHOLESTEROL 50 mg/dl (28-63); PHOSPHORUS 4.1 mg/dl (2.5-4.9); TRIGLYCERIDES 51 mg/dl (0-149)
[2016-11-01 07:05] LABS: CARBAMAZEPINE (TEGRETOL) < 3.0 ug/ml (8.0-12.0)
[2016-11-01 07:16] LABS: ALBUMIN 4.2 g/dl (3.3-4.9); ALBUMIN/GLOBULIN RATIO 1.27; BILIRUBIN,INDIRECT 0.6 mg/dl (0-1.1); BILIRUBIN,TOTAL 0.6 mg/dl (0.2-1.3); CREATININE 0.65 mg/dl (0.61-1.24); TOTAL PROTEIN 7.5 g/dl (6.1-8.1)
[2016-11-01 07:20] VITALS: BP 138/92; RESP 16
[2016-11-01] MEDS: carBAMAZepine (XR) 100 MG TABSR PO SCH ×3 (08:54→21:23)
[2016-11-01] MEDS: FAMOTIDINE 20 MG TAB PO SCH ×2 (08:55→21:23)
--- NOTE | 2016-11-01 09:29 | PN ---
Date/Time of Note Date/Time of Note DATE: 11/01/16 TIME: 09:24 Assessment/Plan VTE Prophylaxis VTE Prophylaxis Intervention: SCD's Lines/Catheters IV Catheter Type (from [facility]): [place] Assessment/Plan Chief Complaint/Hosp Course ASSESSMENT AND PLAN: 36-year-old male with past medical history of ventriculoperitoneal shunt secondary to hydrocephalus who came to the emergency room with chief complaint of headache and back pain that has been going on for the past 1 week. He will be admitted here for further treatment and evaluation. 1. Intractable back pain and headache, etiology unclear. There is concern that that the patient may be presenting with an early form of shunt failure. A brain CT scan was negative for any acute findings. Seen by NSS team, who ordered Ct A/P to further evaluate. - continue adequate pain control. - f/u neurosurgery consult rec's 2. Seizure disorder. The patient will be continued on anticonvulsants. 3. Minimal leukocytosis, most probably reactive in origin - improved today. - We will monitor. 4. The patient will be admitted to inpatient medical/surgical floor. The patient was started on deep venous thrombosis prophylaxis and gastrointestinal prophylaxis. The patient will be a full code. Activity will be as tolerated. The rest of the patient's plan will be based on clinical course, the results of diagnostic studies and input from consultants. Problems: Subjective 24 Hr Interval Summary Free Text/Dictation Seen by NSS team yesterday. Pt had CT A/P yesterday. Still + ORTIZ at times. Per nursing, tolerating PO diet. Exam/Review of Systems Vital Signs Vitals Vital Signs Date Time Temp Pulse Resp B/P Pulse Ox O2 Delivery O2 Flow Rate FiO2 11/01/16 07:20 98.3 79 16 138/92 96 10/31/16 20:00 Room Air Intake and Output 10/31/16 10/31/16 11/01/16 15:00 23:00 07:00 Intake Total 120 ml 240 ml Output Total 600 ml Balance 120 ml -360 ml Exam GENERAL: This is a 36-year-old male patient lying in bed in no apparent distress. HEENT: Head normocephalic and atraumatic. Eyes: Anicteric sclerae. Conjunctivae clear. ENT: Nasal septum is midline. Oral mucosa is dry. NECK: Supple. No JVD noticed. RESPIRATORY: Bilaterally clear to auscultation. No adventitious breath sounds. No use of accessory muscles of respiration. CARDIAC: Regular rate and rhythm. S1, S2 heard. GASTROINTESTINAL: Abdomen soft, nontender. EXTREMITIES: The patient has surgical scars are on the abdomen. Bowel sounds hypoactive in all 4 quadrants. EXTREMITIES: No cyanosis, no clubbing, no edema. Peripheral pulses palpable. NEUROLOGIC: Cranial nerves are grossly intact. Results Result Diagram: 11/01/16 0515 11/01/16 0515 Results 24 hrs Laboratory Tests Test 10/31/16 10:40 11/01/16 05:15 White Blood Count 11.0 H 10.2 Red Blood Count 5.08 5.04 Hemoglobin 16.3 15.7 Hematocrit 46.4 46.4 Mean Corpuscular Volume 91.3 92.1 Mean Corpuscular Hemoglobin 32.1 31.2 Mean Corpuscular Hemoglobin Concent 35.1 33.8 Red Cell Distribution Width 11.4 L 11.8 Platelet Count 288 263 Mean Platelet Volume 10.0 10.6 H Neutrophils % 77.2 H 74.8 Lymphocytes % 12.7 L 17.1 Monocytes % 9.3 7.4 Eosinophils % 0.1 0.1 Basophils % 0.2 0.2 Nucleated Red Blood Cells % 0.0 0.0 Neutrophils # 8.5 H 7.6 H Lymphocytes # 1.4 1.8 Monocytes # 1.0 H 0.8 Eosinophils # 0.0 0.0 Basophils # 0.0 0.0 Nucleated Red Blood Cells # 0.0 0.0 Prothrombin Time 14.3 H Prothrombin Time Ratio 1.1 INR International Normalized Ratio 1.11 Activated Partial Thromboplast Time 26.3 Sodium Level 138 138 Potassium Level 3.5 4.0 Chloride Level 99 104 Carbon Dioxide Level 29 24 Anion Gap 14 14 Blood Urea Nitrogen 7 12 Creatinine 0.80 0.65 Glucose Level 141 121 Calcium Level 9.0 9.0 Troponin I < 0.012 Phosphorus Level 4.1 Magnesium Level 2.0 Total Bilirubin 0.6 Direct Bilirubin 0.00 Indirect Bilirubin 0.6 Aspartate Amino Transf (AST/SGOT) 27 Alanine Aminotransferase (ALT/SGPT) 55 Alkaline Phosphatase 87 Total Protein 7.5 Albumin 4.2 Globulin 3.30 H Albumin/Globulin Ratio 1.27 Triglycerides Level 51 Cholesterol Level 136 LDL Cholesterol, Calculated 76 HDL Cholesterol 50 Cholesterol/HDL Ratio 2.7 Thyroid Stimulating Hormone (TSH) 1.600 Free Thyroxine 1.25 Carbamazepine (Tegretol) Level < 3.0 L Medications Medications Current Medications Ondansetron HCl (Zofran Inj) 4 mg Q6H PRN IV NAUSEA AND/OR VOMITING; Start at 16:00 Acetaminophen (Tylenol Tab) 650 mg Q6H PRN PO PAIN LEVEL 1-3 OR FEVER Last administered on 10/31/16 21:31; Admin Dose 650 MG; Start 10/31/16 at 16:00 Acetaminophen/ Hydrocodone Bitart ([place] (5/325)) 1 tab Q6H PRN PO MODERATE PAIN LEVEL 4-6 Last administered on 10/31/16 22:28; Admin Dose 1 TAB; Start at 16:00 Morphine Sulfate (morphine) 2 mg Q4H PRN IV SEVERE PAIN LEVEL 7-10 Last administered on 11/01/16 01:59; Admin Dose 2 MG; Start 10/31/16 at 16:00 Magnesium Hydroxide (Milk Of Mag) 30 ml DAILY PRN PO CONSTIPATION; Start at 16:00 Bisacodyl (Dulcolax) 5 mg DAILY PRN PO CONSTIPATION; Start 10/31/16 at 16:00 Famotidine (Pepcid) 20 mg Q12 PO Last administered on 11/01/16 08:55; Admin Dose 20 MG; Start 10/31/16 at 21:00 Carbamazepine (Tegretol Xr) 200 mg TID PO Last administered on 11/01/16 08:54 ; Admin Dose 200 MG; Start 10/31/16 at 21:00 Lorazepam (Ativan) 1 mg Q2H PRN IV Seizures; Start 10/31/16 at 17:30 DULCE ESPINOZA 16, 2017 09:29
--- NOTE | 2016-11-01 20:24 | QN ---
Documentation Comment Patient's stepmother brought in films from prior shunt revision and also from 1995. The right sided fluid space is definitely enlarged from the 1999 & 1995 studies, and similar to the CT from 2003 when the patient was last diagnosed in shunt failure. The CT of the chest abdomen and pelvis reveals a retained pleural catheter on the right with pleural effusion. This coudl conceivably be the etiology fo the patient's pain. The abdominal catheter is discontinuous at the level of about the sternum, most likely indicative of a break in the catheter. The reservoir refills briskly, so this most likely reflects a distal shunt failure only. I discussed this with the patient and family, and he will need to undergo shunt revision. We will get a CT of the neck to better follow the catheter from the valve all the way to the broken segment. His family will also try to obtain old records/ op reports to clarify whether he was last revised to the abdomen or to the chest (though his mother remembers that the last revision was to the abdomen). Plan is for VPS exploration/ revision FridayNovember 04. SHANELL THOMPSON MD Nov 01, 2016 20:24
[2016-11-01 20:44] VITALS: BP 133/87; RESP 16
[2016-11-02] MEDS: ACETAMINOPHEN 325 MG TAB PO PRN (01:19)
[2016-11-02] MEDS: LORAZEPAM 2 MG INJ IV PRN (02:50)
[2016-11-02 06:04] LABS: ADD SCAN DIFF NO
[2016-11-02 06:20] LABS: BASOPHILS % 0.4 % (0.0-2.0); EOSINOPHILS % 0.1 % (0.0-7.0); HEMATOCRIT 46.8 % (42.0-52.0); HEMOGLOBIN 16.1 g/dl (14.0-18.0); LYMPHOCYTES # 2.1 10^3/ul (0.8-2.9); LYMPHOCYTES % 19.2 % (15.0-51.0); MEAN CORPUSCULAR HEMOGLOBIN 31.7 pg (29.0-33.0); MEAN CORPUSCULAR HGB CONC 34.4 g/dl (32.0-37.0); MEAN CORPUSCULAR VOLUME 92.1 fl (82.0-101.0); MEAN PLATELET VOLUME 10.6 fl (7.4-10.4); MONOCYTES % 8.9 % (0.0-11.0); NEUTROPHIL # 7.7 10^3/ul (1.6-7.5); PLATELET COUNT 277 10^3/UL (140-415); RED BLOOD COUNT 5.08 10^6/ul (4.70-6.10); RED CELL DISTRIBUTION WIDTH 11.5 % (11.5-14.5); WHITE BLOOD COUNT 10.9 10^3/ul (4.8-10.8)
[2016-11-02 07:00] LABS: CALCIUM 8.9 mg/dl (8.4-10.2); CREATININE 0.75 mg/dl (0.61-1.24); POTASSIUM 4.3 mmol/L (3.5-5.1)
[2016-11-02 07:20] VITALS: BP 145/95; RESP 18
[2016-11-02] MEDS: FAMOTIDINE 20 MG TAB PO SCH ×2 (09:20→21:11)
[2016-11-02] MEDS: carBAMAZepine (XR) 100 MG TABSR PO SCH ×3 (09:20→21:11)
--- NOTE | 2016-11-02 11:02 | PN ---
Date/Time of Note Date/Time of Note DATE: 11/02/16 TIME: 10:59 Assessment/Plan VTE Prophylaxis VTE Prophylaxis Intervention: anti-embolic stocking Lines/Catheters IV Catheter Type (from Nrsg): Saline Lock Assessment/Plan Problems: (1) HEEL VARNISHER (ventriculoperitoneal) shunt status Status: Chronic Comment: His shunt has failed. He is already been seen by neurosurgery is scheduled for revision of this on the morning of November 04. He will be n.p.o. after midnight on the for the procedure. Please I will check a sed rate just to make sure that there is no evidence of infection. (2) Agenesis, corpus callosum Status: Chronic Comment: As above. (3) Schizencephaly Status: Chronic Comment: As above. (4) Seizure disorder Status: Chronic Comment: Continue antiepileptic drugs. No evidence of activity of seizures (5) Back pain Status: Acute Comment: Stable. Qualifiers: Back pain location: low back pain Chronicity: acute Back pain laterality : unspecified Sciatica presence: unspecified whether sciatica present Qualified Code: M54.5 - Acute low back pain, unspecified back pain laterality, with sciatica presence unspecified Subjective 24 Hr Interval Summary Free Text/Dictation Gentleman sitting up in bed watching television. Offers no specific complaints outside of back pain and some headache. Constitutional: no complaints Eyes: no complaints Respiratory: no complaints Cardiovascular: no complaints Gastrointestinal: no complaints Musculoskeletal: back pain Neurologic: headache Exam/Review of Systems Vital Signs Vitals Vital Signs Date Time Temp Pulse Resp B/P Pulse Ox O2 Delivery O2 Flow Rate FiO2 11/02/16 07:20 98.0 78 18 145/95 98 10/31/16 20:00 Room Air Intake and Output 11/01/16 11/01/16 11/02/16 15:00 23:00 07:00 Intake Total 520 ml 720 ml Balance 520 ml 720 ml Exam Constitutional: alert, oriented Neck: non-tender, other (HEEL VARNISHER shunt tubing palpable), supple Respiratory: clear to auscultation, normal air movement Cardiovascular: nl pulses, regular rate and rhythm Results Result Diagram: 11/02/16 0411 11/02/16 0411 Results 24 hrs Laboratory Tests Test 11/02/16 04:11 White Blood Count 10.9 H Red Blood Count 5.08 Hemoglobin 16.1 Hematocrit 46.8 Mean Corpuscular Volume 92.1 Mean Corpuscular Hemoglobin 31.7 Mean Corpuscular Hemoglobin Concent 34.4 Red Cell Distribution Width 11.5 Platelet Count 277 Mean Platelet Volume 10.6 H Neutrophils % 71.0 Lymphocytes % 19.2 Monocytes % 8.9 Eosinophils % 0.1 Basophils % 0.4 Nucleated Red Blood Cells % 0.0 Neutrophils # 7.7 H Lymphocytes # 2.1 Monocytes # 1.0 H Eosinophils # 0.0 Basophils # 0.0 Nucleated Red Blood Cells # 0.0 Sodium Level 134 L Potassium Level 4.3 Chloride Level 98 Carbon Dioxide Level 26 Anion Gap 14 Blood Urea Nitrogen 12 Creatinine 0.75 Glucose Level 98 Calcium Level 8.9 Medications Medications Current Medications Ondansetron HCl (Zofran Inj) 4 mg Q6H PRN IV NAUSEA AND/OR VOMITING; Start at 16:00 Acetaminophen (Tylenol Tab) 650 mg Q6H PRN PO PAIN LEVEL 1-3 OR FEVER Last administered on 11/02/16 01:19; Admin Dose 650 MG; Start 10/31/16 at 16:00 Acetaminophen/ Hydrocodone Bitart ([place] (5/325)) 1 tab Q6H PRN PO MODERATE PAIN LEVEL 4-6 Last administered on 10/31/16 22:28; Admin Dose 1 TAB; Start at 16:00 Morphine Sulfate (morphine) 2 mg Q4H PRN IV SEVERE PAIN LEVEL 7-10 Last administered on 11/01/16 18:40; Admin Dose 2 MG; Start 10/31/16 at 16:00 Magnesium Hydroxide (Milk Of Mag) 30 ml DAILY PRN PO CONSTIPATION; Start at 16:00 Bisacodyl (Dulcolax) 5 mg DAILY PRN PO CONSTIPATION; Start 10/31/16 at 16:00 Famotidine (Pepcid) 20 mg Q12 PO Last administered on 11/02/16 09:20; Admin Dose 20 MG; Start 10/31/16 at 21:00 Carbamazepine (Tegretol Xr) 200 mg TID PO Last administered on 11/02/16 09:20 ; Admin Dose 200 MG; Start 10/31/16 at 21:00 Lorazepam (Ativan) 1 mg Q2H PRN IV Seizures Last administered on 6/17/17at 02: 50; Admin Dose 1 MG; Start 10/31/16 at 17:30 ALFIE FREED MD Nov 02, 2016 11:01
--- NOTE | 2016-11-02 12:02 | RADRPT ---
PROCEDURE: CT soft tissue neck without contrast CLINICAL INDICATION: Shunt tubing break TECHNIQUE: CT of the soft tissues of the neck without contrast was performed on a multidetector CT scanner, with multiplanar reformats, and 3-D reformats. One or more of the following dose reduction techniques were used: Automated exposure control, adjustment in mA and / or kV according to patient size, use of iterative reconstructive technique. CTDIvol = 9 mGy and DLP = 258 mGy-cm. COMPARISON: CT brain 10/30/2016, CT chest 10/31/2016 FINDINGS: Shunt tubing and valve associated with the right transparietal shunt overlies the right occipital ca lvarium with tubing coursing inferiorly into the subcutaneous posterior right neck where it terminat es at approximately the C4 level. There is an adjacent shunt tube with metallic components which do es not appear connected to the other valve/tube; very small circumscribed surrounding fluid is noted . This second shunt tube extends inferiorly in the right posterolateral subcutaneous neck, and over the right sternoclavicular joint where there is separation by 8 mm with intervening very small circ umscribed fluid also noted. The pharynx, and larynx are unremarkable. The thyroid gland and rest of visceral space structures a re unremarkable. The parapharyngeal and retropharyngeal spaces are clear. The carotid spaces are u nremarkable. The parotid and submandibular glands are unremarkable. The imaged inletter spaces a re symmetric. Skull base appears intact. Imaged orbital structures are unremarkable. Oral cavity structures are grossly unremarkable. Noted are small to moderate right maxillary sinus mucous reten tion cysts and partial right ethmoid air cell opacification. Posterior margin of the foramen magnum is again noted to be relatively blunted with C1-C3 laminectomy defects with associate linear surgic al material, probably related to Chiari decompression surgery. The lung apices are clear. Partly v isualized is shunt tubing in the upper right pleural space. IMPRESSION: Shunt tube/valve associated with right transparietal shunt terminating in the mid posterior right ne ck. Adjacent shunt tube which does not appear connected, extending inferiorly along the posterolate ral right neck, and over the right sternoclavicular joint where there is short segment separation. RPTAT: HH .Migue Oscar MD, MD Date Time Electronically viewed and signed by .Migue Oscar MD, on 11/02/2016 12:02 .O/
[2016-11-02] MEDS: HYDROCODONE/APAP (5/325) TAB PO PRN (12:28)
[2016-11-02] MEDS: morphine 2 MG INJ IV PRN ×2 (13:48→21:12)
[2016-11-02 20:49] VITALS: BP 144/96; RESP 18
[2016-11-03] MEDS: ACETAMINOPHEN 325 MG TAB PO PRN (00:14)
[2016-11-03] MEDS: morphine 2 MG INJ IV PRN ×3 (01:51→12:49)
[2016-11-03 05:42] LABS: ADD SCAN DIFF NO
[2016-11-03 05:54] LABS: BASOPHIL # 0.1 10^3/ul (0.0-0.1); BASOPHILS % 0.4 % (0.0-2.0); EOSINOPHILS % 0.2 % (0.0-7.0); HEMATOCRIT 47.4 % (42.0-52.0); HEMOGLOBIN 16.5 g/dl (14.0-18.0); LYMPHOCYTES # 2.6 10^3/ul (0.8-2.9); LYMPHOCYTES % 22.7 % (15.0-51.0); MEAN CORPUSCULAR HEMOGLOBIN 31.5 pg (29.0-33.0); MEAN CORPUSCULAR HGB CONC 34.8 g/dl (32.0-37.0); MEAN CORPUSCULAR VOLUME 90.6 fl (82.0-101.0); MEAN PLATELET VOLUME 10.3 fl (7.4-10.4); MONOCYTES % 8.6 % (0.0-11.0); NEUTROPHIL # 7.8 10^3/ul (1.6-7.5); NEUTROPHILS % 67.8 % (39.0-77.0); PLATELET COUNT 291 10^3/UL (140-415); RED BLOOD COUNT 5.23 10^6/ul (4.70-6.10); RED CELL DISTRIBUTION WIDTH 11.3 % (11.5-14.5); WHITE BLOOD COUNT 11.4 10^3/ul (4.8-10.8)
[2016-11-03 06:21] LABS: CALCIUM 8.6 mg/dl (8.4-10.2); CREATININE 0.68 mg/dl (0.61-1.24); POTASSIUM 3.9 mmol/L (3.5-5.1)
[2016-11-03 07:15] VITALS: BP 140/94; RESP 16
[2016-11-03] MEDS: FAMOTIDINE 20 MG TAB PO SCH ×2 (08:59→21:37)
[2016-11-03] MEDS: carBAMAZepine (XR) 100 MG TABSR PO SCH ×3 (09:00→21:37)
--- NOTE | 2016-11-03 10:32 | PN ---
Date/Time of Note Date/Time of Note DATE: 11/03/16 TIME: 10:30 Assessment/Plan VTE Prophylaxis VTE Prophylaxis Intervention: contraindicated (For surgery in the morning no anticoagulation) Lines/Catheters IV Catheter Type (from Nrsg): Saline Lock Assessment/Plan Problems: (1) Seizure disorder Status: Chronic Comment: Stable with no evidence of active seizure activity on medications (2) PSYCHIC READER (ventriculoperitoneal) shunt status Status: Chronic Comment: For correction tomorrow morning Subjective 24 Hr Interval Summary Free Text/Dictation Patient reports he is anxious to have procedure done tomorrow. Constitutional: no complaints Respiratory: no complaints Cardiovascular: no complaints Gastrointestinal: no complaints Genitourinary: no complaints Musculoskeletal: no complaints Exam/Review of Systems Vital Signs Vitals Vital Signs Date Time Temp Pulse Resp B/P Pulse Ox O2 Delivery O2 Flow Rate FiO2 11/03/16 07:15 97.5 81 16 140/94 98 10/31/16 20:00 Room Air Intake and Output 11/02/16 11/02/16 11/03/16 15:00 23:00 07:00 Intake Total 500 ml 300 ml Balance 500 ml 300 ml Exam Constitutional: alert, oriented Respiratory: clear to auscultation, normal air movement Cardiovascular: nl pulses, regular rate and rhythm Gastrointestinal: nl liver, spleen, non-tender, soft Results Result Diagram: 11/03/16 0420 11/03/16 0420 Results 24 hrs Laboratory Tests Test 11/03/16 04:20 White Blood Count 11.4 H Red Blood Count 5.23 Hemoglobin 16.5 Hematocrit 47.4 Mean Corpuscular Volume 90.6 Mean Corpuscular Hemoglobin 31.5 Mean Corpuscular Hemoglobin Concent 34.8 Red Cell Distribution Width 11.3 L Platelet Count 291 Mean Platelet Volume 10.3 Neutrophils % 67.8 Lymphocytes % 22.7 Monocytes % 8.6 Eosinophils % 0.2 Basophils % 0.4 Nucleated Red Blood Cells % 0.0 Neutrophils # 7.8 H Lymphocytes # 2.6 Monocytes # 1.0 H Eosinophils # 0.0 Basophils # 0.1 Nucleated Red Blood Cells # 0.0 Erythrocyte Sedimentation Rate 5 Sodium Level 133 L Potassium Level 3.9 Chloride Level 98 Carbon Dioxide Level 25 Anion Gap 14 Blood Urea Nitrogen 13 Creatinine 0.68 Glucose Level 113 Calcium Level 8.6 Medications Medications Current Medications Ondansetron HCl (Zofran Inj) 4 mg Q6H PRN IV NAUSEA AND/OR VOMITING; Start at 16:00 Acetaminophen (Tylenol Tab) 650 mg Q6H PRN PO PAIN LEVEL 1-3 OR FEVER Last administered on 11/03/16 00:14; Admin Dose 650 MG; Start 10/31/16 at 16:00 Acetaminophen/ Hydrocodone Bitart ([place] (5/325)) 1 tab Q6H PRN PO MODERATE PAIN LEVEL 4-6 Last administered on 11/02/16 12:28; Admin Dose 1 TAB; Start at 16:00 Morphine Sulfate (morphine) 2 mg Q4H PRN IV SEVERE PAIN LEVEL 7-10 Last administered on 11/03/16 08:56; Admin Dose 2 MG; Start 10/31/16 at 16:00 Magnesium Hydroxide (Milk Of Mag) 30 ml DAILY PRN PO CONSTIPATION; Start at 16:00 Bisacodyl (Dulcolax) 5 mg DAILY PRN PO CONSTIPATION; Start 10/31/16 at 16:00 Famotidine (Pepcid) 20 mg Q12 PO Last administered on 11/03/16 08:59; Admin Dose 20 MG; Start 10/31/16 at 21:00 Carbamazepine (Tegretol Xr) 200 mg TID PO Last administered on 11/03/16 09:00 ; Admin Dose 200 MG; Start 10/31/16 at 21:00 Lorazepam (Ativan) 1 mg Q2H PRN IV Seizures Last administered on 11/02/16 02: 50; Admin Dose 1 MG; Start 10/31/16 at 17:30 ALFIE FREED MD Nov 03, 2016 10:31
[2016-11-03] MEDS: HYDROCODONE/APAP (5/325) TAB PO PRN ×2 (15:43→23:12)
[2016-11-03 20:23] VITALS: BP 131/88; RESP 18
[2016-11-04] VITALS (33 sets, daily range): BP systolic 107–189; BP diastolic 62–106; PULSE 66–136; RESP 16–22
[2016-11-04] MEDS: LORAZEPAM 2 MG INJ IV PRN (00:39)
[2016-11-04 05:50] LABS: ADD SCAN DIFF NO
[2016-11-04 05:56] LABS: BASOPHIL # 0.1 10^3/ul (0.0-0.1); BASOPHILS % 0.5 % (0.0-2.0); EOSINOPHILS % 0.3 % (0.0-7.0); HEMATOCRIT 47.4 % (42.0-52.0); HEMOGLOBIN 16.5 g/dl (14.0-18.0); LYMPHOCYTES # 2.6 10^3/ul (0.8-2.9); LYMPHOCYTES % 24.4 % (15.0-51.0); MEAN CORPUSCULAR HEMOGLOBIN 31.7 pg (29.0-33.0); MEAN CORPUSCULAR HGB CONC 34.8 g/dl (32.0-37.0); MEAN PLATELET VOLUME 10.2 fl (7.4-10.4); MONOCYTES % 9.6 % (0.0-11.0); NEUTROPHIL # 6.9 10^3/ul (1.6-7.5); NEUTROPHILS % 64.9 % (39.0-77.0); PLATELET COUNT 291 10^3/UL (140-415); RED BLOOD COUNT 5.21 10^6/ul (4.70-6.10); RED CELL DISTRIBUTION WIDTH 11.3 % (11.5-14.5); WHITE BLOOD COUNT 10.6 10^3/ul (4.8-10.8)
[2016-11-04 06:20] LABS: CALCIUM 8.9 mg/dl (8.4-10.2); CREATININE 0.72 mg/dl (0.61-1.24)
[2016-11-04] MEDS: carBAMAZepine (XR) 100 MG TABSR PO SCH ×3 (09:00→21:00)
[2016-11-04] MEDS: FAMOTIDINE 20 MG TAB PO SCH ×2 (09:00→21:00)
[2016-11-04] MEDS: morphine 2 MG INJ IV PRN ×2 (09:16→10:46)
[2016-11-04] MEDS ORDERED: POLYMYXIN/BACITRACIN 1L IRRIG ONE (10:33)
[2016-11-04] MEDS ORDERED: LIDOCAINE 2%/EPI 30 ML INJ ONE (10:33)
[2016-11-04] MEDS ORDERED: BACITRACIN 0.9 GM OINT ONE (10:34)
--- NOTE | 2016-11-04 11:11 | PN ---
Date/Time of Note Date/Time of Note DATE: 11/04/16 TIME: 11:03 Assessment/Plan VTE Prophylaxis VTE Prophylaxis Intervention: SCD's Lines/Catheters IV Catheter Type (from Nrsg): Saline Lock Assessment/Plan Chief Complaint/Hosp Course Assessment and plan 1. Intractable back pain and headache suspect secondary to malfunctioning GAS STATION CASHIER shunt. Patient for revision today with neurosurgeon. Will follow postop. 2. Seizure disorder. Continue anticonvulsants Disposition and plan: Continue with anticonvulsants. Tentative plan for GAS STATION CASHIER shunt revision. Discussed plan of care with Dr. Wooten Problems: Subjective 24 Hr Interval Summary Free Text/Dictation slightly confused. only reports minimal headache. no s/s of distress Exam/Review of Systems Vital Signs Vitals Vital Signs Date Time Temp Pulse Resp B/P Pulse Ox O2 Delivery O2 Flow Rate FiO2 11/04/16 08:05 98.4 90 16 131/89 97 10/31/16 20:00 Room Air Intake and Output 11/03/16 11/03/16 11/04/16 15:00 23:00 07:00 Intake Total 770 ml 500 ml Balance 770 ml 500 ml Exam Constitutional: alert, other (little confused but is able to be re-oriented ) Psych: nl mood/affect Neck: supple, No jvd Respiratory: clear to auscultation, normal air movement Cardiovascular: regular rate and rhythm Gastrointestinal: non-tender, soft Extremities: normal pulses Neurological: LICENSED OPTICAL DISPENSER II-XII intact, nl speech Results Result Diagram: 11/04/16 0420 11/04/16 0420 Results 24 hrs Laboratory Tests Test 11/04/16 04:20 White Blood Count 10.6 Red Blood Count 5.21 Hemoglobin 16.5 Hematocrit 47.4 Mean Corpuscular Volume 91.0 Mean Corpuscular Hemoglobin 31.7 Mean Corpuscular Hemoglobin Concent 34.8 Red Cell Distribution Width 11.3 L Platelet Count 291 Mean Platelet Volume 10.2 Neutrophils % 64.9 Lymphocytes % 24.4 Monocytes % 9.6 Eosinophils % 0.3 Basophils % 0.5 Nucleated Red Blood Cells % 0.0 Neutrophils # 6.9 Lymphocytes # 2.6 Monocytes # 1.0 H Eosinophils # 0.0 Basophils # 0.1 Nucleated Red Blood Cells # 0.0 Sodium Level 133 L Potassium Level 4.0 Chloride Level 98 Carbon Dioxide Level 26 Anion Gap 13 Blood Urea Nitrogen 12 Creatinine 0.72 Glucose Level 115 Calcium Level 8.9 Medications Medications Current Medications Ondansetron HCl (Zofran Inj) 4 mg Q6H PRN IV NAUSEA AND/OR VOMITING; Start at 16:00 Acetaminophen (Tylenol Tab) 650 mg Q6H PRN PO PAIN LEVEL 1-3 OR FEVER Last administered on 11/03/16 00:14; Admin Dose 650 MG; Start 10/31/16 at 16:00 Acetaminophen/ Hydrocodone Bitart ([place] (5/325)) 1 tab Q6H PRN PO MODERATE PAIN LEVEL 4-6 Last administered on 11/03/16 23:12; Admin Dose 1 TAB; Start at 16:00 Morphine Sulfate (morphine) 2 mg Q4H PRN IV SEVERE PAIN LEVEL 7-10 Last administered on 11/04/16 10:46; Admin Dose 2 MG; Start 10/31/16 at 16:00 Magnesium Hydroxide (Milk Of Mag) 30 ml DAILY PRN PO CONSTIPATION; Start at 16:00 Bisacodyl (Dulcolax) 5 mg DAILY PRN PO CONSTIPATION; Start 10/31/16 at 16:00 Famotidine (Pepcid) 20 mg Q12 PO Last administered on 11/03/16 21:37; Admin Dose 20 MG; Start 10/31/16 at 21:00 Carbamazepine (Tegretol Xr) 200 mg TID PO Last administered on 11/03/16 21:37 ; Admin Dose 200 MG; Start 10/31/16 at 21:00 Lorazepam (Ativan) 1 mg Q2H PRN IV Seizures Last administered on 11/04/16 00: 39; Admin Dose 1 MG; Start 10/31/16 at 17:30 NEIL PRIDE Nov 04, 2016 11:10
[2016-11-04] MEDS ORDERED: ROCURONIUM 50 MG INJ ONE ×3 (11:20→20:30)
[2016-11-04] MEDS ORDERED: LIDOCAINE 2% (SDV) 5 ML INJ ONE ×2 (11:21→17:34)
[2016-11-04] MEDS ORDERED: LIDOCAINE 1% (STERILE-PAK) 30 ML INJ ONE (17:19)
[2016-11-04] MEDS ORDERED: NEOMYC/POLYMYX/BACIT 30 GM OINT ONE (17:19)
[2016-11-04] MEDS ORDERED: LIDOCAINE 2%/EPI (MDV) 20ML INJ ONE (17:20)
[2016-11-04] MEDS ORDERED: THROMBIN 5000 UNIT VIAL ONE (17:23)
[2016-11-04] MEDS ORDERED: PROPOFOL 20 ML ONE (17:34)
[2016-11-04] MEDS ORDERED: FENTAnyl 50 MCG/ML VIAL ONE (17:35)
[2016-11-04] MEDS ORDERED: MIDAZOLAM 1 MG/ML 2 ML INJ ONE (18:04)
[2016-11-04] MEDS ORDERED: SUCCINYLCHOLINE CHLORIDE 100 MG/5 ML SYG IV ONE (18:08)
[2016-11-04] MEDS ORDERED: HYDROmorphONE 2 MG/ML SYG ONE (19:08)
[2016-11-04] MEDS ORDERED: NEOSTIGMINE 3 MG/3 ML SYRINGE ONE ×2 (19:08→20:49)
[2016-11-04] MEDS ORDERED: GLYCOPYRROLATE 1 MG INJ ONE (19:08)
[2016-11-04] MEDS ORDERED: HYDROmorphONE (0.2 MG/ML) 10ML SYG IV PRN ×2 (21:00)
[2016-11-04] MEDS ORDERED: MEPERIDINE 25 MG INJ IV PRN (21:00)
[2016-11-04] MEDS ORDERED: ONDANSETRON 4 MG INJ IV PRN (21:00)
[2016-11-04] MEDS ORDERED: FENTAnyl 50 MCG/ML VIAL IV PRN ×2 (21:00)
[2016-11-04] MEDS ORDERED: PROCHLORPERAZINE 10 MG INJ IV PRN (21:00)
[2016-11-04] MEDS ORDERED: DIPHENHYDRAMINE 50 MG INJ IV PRN (21:00)
[2016-11-04] MEDS ORDERED: ESMOLOL 10 ML ONE (21:05)
[2016-11-04] MEDS ORDERED: hydrALAzine 20 MG INJ IV PRN (22:00)
[2016-11-04] MEDS ORDERED: LABETALOL HCL 20MG INJ IV PRN (22:00)
[2016-11-04] MEDS: HYDROmorphONE (0.2 MG/ML) 10ML SYG IV PRN ×2 (22:35→22:58)
[2016-11-05] VITALS (9 sets, daily range): BP systolic 110–116; BP diastolic 60–79; PULSE 87–147; RESP 16–18
--- NOTE | 2016-11-05 00:02 | OPR ---
DATE OF OPERATION: 11/04/2016 PREOPERATIVE DIAGNOSIS: Shunt failure. POSTOPERATIVE DIAGNOSIS: Shunt failure. PROCEDURE PERFORMED: Exploration and revision of right ventriculoperitoneal shunt. SURGEON: Maxim Roes MD AUTOMOTIVE SOFTWARE ENGINEER: None. ANESTHESIA: General endotracheal anesthesia. INDICATIONS: The patient is a 36-year-old male shunted since infancy, last revised in 2003, who presents with worsening headache. CT demonstrates increased ventriculomegaly over his scans from 10 years ago. The risks, benefits and alternatives to revision of his shunt were explained to the patient and his family in detail. Informed consent was obtained. The patient was brought to the operating room. FINDINGS: Included an intact proximal catheter and proximal valve, with occluded distal catheter which was broken approximately 3 or 4 cm from the distal end of the valve in the neck. OPERATION IN DETAIL: The patient was positioned supine on the operating table, induction of anesthesia with a bump under the right shoulder. His head was placed in a horseshoe. The hair over the right hemicalvarium was clipped. The patient was prepped and draped in the usual sterile fashion. A complete timeout was performed. His prior shunt incision was reopened with a 10 blade. The shunt was identified. The valve was interrogated with a manometer. There was excellent proximal flow, with occlusion of the proximal catheter. There was a complete absence of distal flow. The distal catheter was then disconnected from the distal end of the shunt and pulled out of the neck. It was found to be only 4 or 5 cm in total length before it broke. There appeared to be a second shunt valve and retained system in the neck as well. The proximal catheter was clamped temporarily with a shodded clamp and then using a tunneler, I attempted to tunnel it from the shunt incision to the abdomen; however, because of the presence of the prior retained valve, there was a large amount of adhesions and I could not successfully tunnel in that direction. Incision was then made over the clavicle, and I tunneled from clavicle to the cranial incision; however, I had to remove a portion of the retained valve, which was sent to pathology as an explant, in order to be able to successfully tunnel from the clavicle to the shunt incision. The peritoneal end of the catheter was then tunneled from this incision to the clavicle, connected to the distal end of the valve, secured with a silk tie and then the valve was pumped, and there was spontaneous flow further on from the distal end of the valve. I then tunneled from the clavicle to the right upper quadrant of the abdomen where a transverse incision was made with a 10 blade. Dissection was carried down to the rectus abdominis fascia which was incised with the Bovie electrocautery. The fibers of the rectus abdominis were split and retracted with a self-retaining retractor. The posterior rectus sheath was picked up with a mosquito and incised with a Metzenbaum scissors. The peritoneum was identified, picked up with mosquito clamps and 4-0 Nurolon pursestring suture was placed and a Metzenbaum was used to open the peritoneum. The distal end of the catheter was then checked again for patency and spontaneous flow was identified through the catheter from the shunt prior immediately to placing it in the peritoneal space. The pursestring suture was then secured lightly. The wounds were then irrigated with copious amounts of antibiotic irrigation and closed in layers with 2-0 interrupted Vicryl being used to close the rectus abdominis fascia, 2-0 interrupted inverted Vicryl being used to close the subcuticular layer in the abdomen and in the clavicle, nickolas on skin in the abdomen and clavicle, and the postauricular prior occipital shunt incision was closed in layers with 2-0 interrupted inverted Vicryl being used to close the galea and a running 2-0 nylon on the skin. The patient tolerated the procedure well. There were no complications. All needle and sponge counts were reported as correct x2. Dictated By: MAXIM LAWTON/RUFINO Conf#: [id number] DID#: [id number] PELON
[2016-11-05] MEDS: morphine 2 MG INJ IV PRN (00:50)
[2016-11-05] MEDS: CEFUROXIME IVPB SCH ×3 (05:30→14:03)
[2016-11-05 07:58] LABS: ADD SCAN DIFF NO
[2016-11-05 08:05] LABS: BASOPHIL # 0.1 10^3/ul (0.0-0.1); BASOPHILS % 0.4 % (0.0-2.0); EOSINOPHILS % 0.1 % (0.0-7.0); HEMATOCRIT 48.6 % (42.0-52.0); HEMOGLOBIN 16.6 g/dl (14.0-18.0); LYMPHOCYTES # 3.2 10^3/ul (0.8-2.9); LYMPHOCYTES % 20.7 % (15.0-51.0); MEAN CORPUSCULAR HEMOGLOBIN 31.7 pg (29.0-33.0); MEAN CORPUSCULAR HGB CONC 34.2 g/dl (32.0-37.0); MEAN CORPUSCULAR VOLUME 92.7 fl (82.0-101.0); MEAN PLATELET VOLUME 11.2 fl (7.4-10.4); MONOCYTE # 1.4 10^3/ul (0.3-0.9); MONOCYTES % 9.2 % (0.0-11.0); NEUTROPHIL # 10.8 10^3/ul (1.6-7.5); NEUTROPHILS % 69.3 % (39.0-77.0); PLATELET COUNT 207 10^3/UL (140-415); RED BLOOD COUNT 5.24 10^6/ul (4.70-6.10); RED CELL DISTRIBUTION WIDTH 11.7 % (11.5-14.5); WHITE BLOOD COUNT 15.6 10^3/ul (4.8-10.8)
[2016-11-05] MEDS: FAMOTIDINE 20 MG TAB PO SCH ×2 (09:47→21:20)
[2016-11-05] MEDS: carBAMAZepine (XR) 100 MG TABSR PO SCH ×3 (09:47→21:20)
[2016-11-05 10:48] LABS: CALCIUM 9.1 mg/dl (8.4-10.2); CREATININE 0.77 mg/dl (0.61-1.24); POTASSIUM 4.2 mmol/L (3.5-5.1)
--- NOTE | 2016-11-05 15:51 | PN ---
Date/Time of Note Date/Time of Note DATE: 11/05/16 TIME: 15:49 Assessment/Plan VTE Prophylaxis VTE Prophylaxis Intervention: SCD's Lines/Catheters IV Catheter Type (from Nrsg): Saline Lock Assessment/Plan Chief Complaint/Hosp Course Assessment and plan 1. Intractable back pain and headache suspect secondary to malfunctioning IN SERVICE EDUCATOR shunt. Status post revision. Stable at present. Continue to monitor. 2. Seizure disorder. Continue anticonvulsants Disposition and plan: Continue with anticonvulsants. Status post IN SERVICE EDUCATOR shunt revision. Continue to monitor neuro status at this time. Follow-up with neurosurgeon recommendations. Discharge and cleared by consultants Discussed plan of care with Dr. Wooten Problems: Subjective 24 Hr Interval Summary Free Text/Dictation Comfortable at present. Denies any headache at this time Exam/Review of Systems Vital Signs Vitals Vital Signs Date Time Temp Pulse Resp B/P Pulse Ox O2 Delivery O2 Flow Rate FiO2 11/05/16 15:04 98.0 89 18 112/60 97 11/05/16 01:22 Nasal Cannula 2.0 Intake and Output 11/04/16 11/04/16 11/05/16 15:00 23:00 07:00 Intake Total 1600 ml 220 ml Output Total 100 ml 460 ml Balance 1500 ml -240 ml Exam Constitutional: alert, oriented at this time Psych: nl mood/affect Neck: supple, No jvd Respiratory: clear to auscultation, normal air movement Cardiovascular: regular rate and rhythm Gastrointestinal: non-tender, soft Extremities: normal pulses Neurological: AUDIO NARRATOR II-XII intact, nl speech Results Result Diagram: 11/05/16 0738 11/05/16 0738 Results 24 hrs Laboratory Tests Test 11/05/16 07:38 White Blood Count 15.6 #H Red Blood Count 5.24 Hemoglobin 16.6 Hematocrit 48.6 Mean Corpuscular Volume 92.7 Mean Corpuscular Hemoglobin 31.7 Mean Corpuscular Hemoglobin Concent 34.2 Red Cell Distribution Width 11.7 Platelet Count 207 # Mean Platelet Volume 11.2 H Neutrophils % 69.3 Lymphocytes % 20.7 Monocytes % 9.2 Eosinophils % 0.1 Basophils % 0.4 Nucleated Red Blood Cells % 0.0 Neutrophils # 10.8 H Lymphocytes # 3.2 H Monocytes # 1.4 H Eosinophils # 0.0 Basophils # 0.1 Nucleated Red Blood Cells # 0.0 Sodium Level 138 Potassium Level 4.2 Chloride Level 104 Carbon Dioxide Level 19 L Anion Gap 19 H Blood Urea Nitrogen 12 Creatinine 0.77 Glucose Level 116 Calcium Level 9.1 Medications Medications Current Medications Ondansetron HCl (Zofran Inj) 4 mg Q6H PRN IV NAUSEA AND/OR VOMITING; Start at 16:00 Acetaminophen (Tylenol Tab) 650 mg Q6H PRN PO PAIN LEVEL 1-3 OR FEVER Last administered on 11/03/16 00:14; Admin Dose 650 MG; Start 10/31/16 at 16:00 Acetaminophen/ Hydrocodone Bitart ([place] (5/325)) 1 tab Q6H PRN PO MODERATE PAIN LEVEL 4-6 Last administered on 11/03/16 23:12; Admin Dose 1 TAB; Start at 16:00 Morphine Sulfate (morphine) 2 mg Q4H PRN IV SEVERE PAIN LEVEL 7-10 Last administered on 11/05/16 00:50; Admin Dose 2 MG; Start 10/31/16 at 16:00 Magnesium Hydroxide (Milk Of Mag) 30 ml DAILY PRN PO CONSTIPATION; Start at 16:00 Bisacodyl (Dulcolax) 5 mg DAILY PRN PO CONSTIPATION; Start 10/31/16 at 16:00 Famotidine (Pepcid) 20 mg Q12 PO Last administered on 11/05/16 09:47; Admin Dose 20 MG; Start 10/31/16 at 21:00 Carbamazepine (Tegretol Xr) 200 mg TID PO Last administered on 11/05/16 12:17 ; Admin Dose 200 MG; Start 10/31/16 at 21:00 Lorazepam (Ativan) 1 mg Q2H PRN IV Seizures Last administered on 11/04/16 00: 39; Admin Dose 1 MG; Start 10/31/16 at 17:30 NEIL PRIDE Nov 05, 2016 15:51
--- NOTE | 2016-11-05 16:02 | RADRPT ---
PROCEDURE: CT Brain without contrast. CLINICAL INDICATION: Shunt revision; Neurologic deficit TECHNIQUE: A CT of the brain was performed on multidetector high-resolution CT scanner utilizing a xial sections from the skull base through the vertex without contrast. One or more of the following dose reduction techniques were used: Automated exposure control, Adjustment of the mA and/or kV acc ording to patient size, and/or use of iterative reconstruction technique. DOSE: CTDI = 45 mGy and the DLP = 810 mGy-cm. COMPARISON: Head CT 10/30/2016 FINDINGS: Right transparietal ventricular shunt tip is at the midline within the previously described prominen t midline extra-axial space that communicates with the lateral ventricles. The right lateral ventric le is mildly decreased in size. Absence of the septum pellucidum. There is agenesis of the corpus callosum with interdigitation of sulci at the midline with underlying focal areas of gliosis and enc ephalomalacia along the parasagittal brain. Stable left frontal periventricular parenchymal calcific ation. Chiari malformation is again noted with soft tissue crowding at the foramen magnum and narrow ing of the basal cisterns. No acute hemorrhage identified. Mild right ethmoid sinus mucosal thicken ing. IMPRESSION: Agenesis of the corpus callosum and Chiari malformation. Right transparietal ventricular shunt tip is at the midline within the previously described prominen t midline extra-axial space that communicates with the lateral ventricles. The right lateral ventricle is mildly decreased in size from prior. See details in the findings. RPTAT: AA .Kingsley Becerril MD, MD Date Time Electronically viewed and signed by .Kingsley Becerril MD, MD on 11/05/2016 16:02 .T/
--- NOTE | 2016-11-05 17:45 | QN ---
Documentation Comment POD#1 s/p VPS revision. Dressing dry. CT shows improvement in ventricular size. Patient awake and alert. Headache improved. He should get up with home when cleared by PT. He should follow up with me for staple removal in two weeks. He may return to work in 3-4 weeks. SHANELL THOMPSON MD Nov 05, 2016 17:45
[2016-11-06] VITALS (13 sets, daily range): BP systolic 110–133; BP diastolic 59–79; PULSE 78–95; RESP 16–20
[2016-11-06 07:41] LABS: ADD SCAN DIFF NO
[2016-11-06 07:42] LABS: BASOPHIL # 0.1 10^3/ul (0.0-0.1); BASOPHILS % 0.5 % (0.0-2.0); EOSINOPHILS # 0.1 10^3/ul (0.0-0.5); EOSINOPHILS % 0.7 % (0.0-7.0); HEMATOCRIT 44.2 % (42.0-52.0); HEMOGLOBIN 15.1 g/dl (14.0-18.0); LYMPHOCYTES % 28.3 % (15.0-51.0); MEAN CORPUSCULAR HEMOGLOBIN 31.7 pg (29.0-33.0); MEAN CORPUSCULAR HGB CONC 34.2 g/dl (32.0-37.0); MEAN CORPUSCULAR VOLUME 92.7 fl (82.0-101.0); MEAN PLATELET VOLUME 10.3 fl (7.4-10.4); MONOCYTE # 1.1 10^3/ul (0.3-0.9); MONOCYTES % 10.6 % (0.0-11.0); NEUTROPHIL # 6.4 10^3/ul (1.6-7.5); NEUTROPHILS % 59.4 % (39.0-77.0); PLATELET COUNT 230 10^3/UL (140-415); RED BLOOD COUNT 4.77 10^6/ul (4.70-6.10); RED CELL DISTRIBUTION WIDTH 11.7 % (11.5-14.5); WHITE BLOOD COUNT 10.7 10^3/ul (4.8-10.8)
[2016-11-06 08:08] LABS: CALCIUM 8.7 mg/dl (8.4-10.2); CREATININE 0.59 mg/dl (0.61-1.24); POTASSIUM 3.8 mmol/L (3.5-5.1)
--- NOTE | 2016-11-06 09:58 | PDOCDIS ---
Discharge Instructions DIAGNOSIS Discharge Diagnosis: 1. malfunctioning COVERSTITCH BINDER shunt 2. hx seizure CONDITION Patient Condition: Stable HOME CARE INSTRUCTIONS: Diet Instructions: Regular FOLLOW UP/APPOINTMENTS Appointments 1. Please follow up with Dr. Maxim Rose in 2 weeks 2. Follow up with your primary care provider in 1 week OTHER ORDERS: Other Orders: 1. Come to the ER if you have worsening headache NEIL PRIDE Nov 06, 2016 09:58
[2016-11-06] MEDS: FAMOTIDINE 20 MG TAB PO SCH ×2 (10:44→21:40)
[2016-11-06] MEDS: carBAMAZepine (XR) 100 MG TABSR PO SCH ×3 (10:45→21:39)
[2016-11-06] MEDS: HYDROCODONE/APAP (5/325) TAB PO PRN ×2 (14:17→21:39)
--- NOTE | 2016-11-06 15:35 | DS ---
Date/Time of Note Date/Time of Note DATE: 11/06/16 TIME: 15:31 Discharge Summary Admission/Discharge Info Admit Date/Time Nov 02, 2016 at 10:31 Discharge Date/Time Final Diagnosis 1. Intractable back pain and headache secondary to malfunctioning IT QUALITY ANALYST shunt 2. Seizure disorder Patient Condition: Stable Consults 1. Dr. Maxim Rose Hospital Course This is a 36-year-old male with history of hydrocephalus status post IT QUALITY ANALYST shunt and seizures who came to [facility] due to reports of backache and headache. According to the patient he had also initially been to the ER on October 30, 2016 with similar complaints of left AGAINST MEDICAL ADVICE on the same day. He did came back on October 31, 2016 due to reported pain again. He had headache back pain for 1 week duration. Was also reported that he had a fall where he was living but denied any injuries. He was brought to [facility] and had a CT scan of his head that showed dysmorphic brain with callosal agenesis/severe dysgenesis, asymmetric enlargement of the lateral ventricles, right greater than left with the right lateral ventricle, contiguous with prominence of extra-axial spaces and interhemispheric/ parasagittal regions. There is also suggestion of underlying Chiari malformation with right-sided transparietal shunt catheter. Patient was seen by neurosurgeon for his malfunctioning IT QUALITY ANALYST shunt. Patient did undergo revision of this with good response. He was otherwise optimized medically. He was resumed on analgesics as needed for pain as well as seizure medication for his history of seizures. During his course of stay he did improve. Was seen by physical therapy and advised to follow a walker for which we did consult case management for this issue. The plan of care was discussed with the patient and patient did verbalizes understanding. On the day of discharge patient was in stable condition Discussed plan of car with Dr. Wooten Home Meds Reported Medications Carbamazepine* (Carbamazepine* XR) 200 Mg Tab.er.12h, 200 MG PO TID, TAB.SA 10/30/16 Follow-up Plan CONDITION Patient Condition: Stable HOME CARE INSTRUCTIONS: Diet Instructions: Regular FOLLOW UP/APPOINTMENTS Appointments 1. Please follow up with Dr. Maxim Rose in 2 weeks 2. Follow up with your primary care provider in 1 week OTHER ORDERS: Other Orders: 1. Come to the ER if you have worsening headache Primary Care Provider Selvin Pedraza Pending Labs Laboratory Tests Test 11/06/16 06:54 White Blood Count 10.710^3/ul (4.8-10.8) Red Blood Count 4.7710^6/ul (4.70-6.10) Hemoglobin 15.1g/dl (14.0-18.0) Hematocrit 44.2% (42.0-52.0) Mean Corpuscular Volume 92.7fl (82.0-101.0) Mean Corpuscular Hemoglobin 31.7pg (29.0-33.0) Mean Corpuscular Hemoglobin Concent 34.2g/dl (32.0-37.0) Red Cell Distribution Width 11.7% (11.5-14.5) Platelet Count 34150^3/UL (140-415) Mean Platelet Volume 10.3fl (7.4-10.4) Neutrophils % 59.4% (39.0-77.0) Lymphocytes % 28.3% (15.0-51.0) Monocytes % 10.6% (0.0-11.0) Eosinophils % 0.7% (0.0-7.0) Basophils % 0.5% (0.0-2.0) Nucleated Red Blood Cells % 0.0/100WBC (0.0-0.0) Neutrophils # 6.410^3/ul (1.6-7.5) Lymphocytes # 3.010^3/ul (0.8-2.9) Monocytes # 1.110^3/ul (0.3-0.9) Eosinophils # 0.110^3/ul (0.0-0.5) Basophils # 0.110^3/ul (0.0-0.1) Nucleated Red Blood Cells # 0.010^3/ul (0.0-0.0) Sodium Level 138mmol/L (135-144) Potassium Level 3.8mmol/L (3.5-5.1) Chloride Level 102mmol/L (97-110) Carbon Dioxide Level 27mmol/L (21-31) Anion Gap 13 (8-16) Blood Urea Nitrogen 10mg/dl (7-20) Creatinine 0.59mg/dl (0.61-1.24) Glucose Level 92mg/dl (70-220) Calcium Level 8.7mg/dl (8.4-10.2) NEIL PRIDE Nov 06, 2016 15:35
[2016-11-07] VITALS (11 sets, daily range): BP systolic 91–130; BP diastolic 54–69; PULSE 64–89; RESP 16–20
[2016-11-07] MEDS: FAMOTIDINE 20 MG TAB PO SCH ×2 (10:13→21:10)
[2016-11-07] MEDS: carBAMAZepine (XR) 100 MG TABSR PO SCH ×3 (10:13→21:10)
--- NOTE | 2016-11-07 15:28 | PN ---
Date/Time of Note Date/Time of Note DATE: 11/07/16 TIME: 15:06 Assessment/Plan VTE Prophylaxis VTE Prophylaxis Intervention: SCD's Lines/Catheters IV Catheter Type (from Nrsg): Saline Lock Assessment/Plan Chief Complaint/Hosp Course Assessment and plan 1. Intractable back pain and headache suspect secondary to malfunctioning RUM PROCESSING OPERATOR shunt. Status post revision. Stable at present. Continue to monitor. Continue physical therapy . 2. Seizure disorder. Continue anticonvulsants. Stable at present Disposition and plan: Continue with anticonvulsants. Status post RUM PROCESSING OPERATOR shunt revision. Continue to monitor neuro status at this time. Continue with physical therapy. Follow-up with neurosurgery recommendations. Discharge when cleared by neurosurgeon. Discussed plan of care with Dr. Wooten Problems: Subjective 24 Hr Interval Summary Free Text/Dictation Comfortable at present. No apparent distress seen. No specific complaints. Exam/Review of Systems Vital Signs Vitals Vital Signs Date Time Temp Pulse Resp B/P Pulse Ox O2 Delivery O2 Flow Rate FiO2 11/07/16 12:03 80 11/07/16 12:01 98.3 18 117/66 97 11/05/16 20:26 Nasal Cannula 2.0 Intake and Output 11/06/16 11/06/16 11/07/16 15:00 23:00 07:00 Intake Total 650 ml 120 ml Output Total 500 ml 450 ml Balance 150 ml -330 ml Exam Constitutional: alert, oriented at this time Psych: nl mood/affect Neck: supple, No jvd Respiratory: clear to auscultation, normal air movement Cardiovascular: regular rate and rhythm Gastrointestinal: non-tender, soft Extremities: normal pulses Neurological: PLANNING ENGINEER II-XII intact, nl speech Results Result Diagram: 11/06/1654 11/06/1654 Medications Medications Current Medications Ondansetron HCl (Zofran Inj) 4 mg Q6H PRN IV NAUSEA AND/OR VOMITING; Start at 16:00 Acetaminophen (Tylenol Tab) 650 mg Q6H PRN PO PAIN LEVEL 1-3 OR FEVER Last administered on 11/03/16 00:14; Admin Dose 650 MG; Start 10/31/16 at 16:00 Acetaminophen/ Hydrocodone Bitart ([place] (5/325)) 1 tab Q6H PRN PO MODERATE PAIN LEVEL 4-6 Last administered on 11/06/16 21:39; Admin Dose 1 TAB; Start at 16:00 Morphine Sulfate (morphine) 2 mg Q4H PRN IV SEVERE PAIN LEVEL 7-10 Last administered on 11/05/16 00:50; Admin Dose 2 MG; Start 10/31/16 at 16:00 Magnesium Hydroxide (Milk Of Mag) 30 ml DAILY PRN PO CONSTIPATION; Start at 16:00 Bisacodyl (Dulcolax) 5 mg DAILY PRN PO CONSTIPATION Last administered on 18:27; Admin Dose 5 MG; Start 10/31/16 at 16:00 Famotidine (Pepcid) 20 mg Q12 PO Last administered on 11/07/16 10:13; Admin Dose 20 MG; Start 10/31/16 at 21:00 Carbamazepine (Tegretol Xr) 200 mg TID PO Last administered on 11/07/16 14:42 ; Admin Dose 200 MG; Start 10/31/16 at 21:00 Lorazepam (Ativan) 1 mg Q2H PRN IV Seizures Last administered on 11/04/16 00: 39; Admin Dose 1 MG; Start 10/31/16 at 17:30 NEIL PRIDE Nov 07, 2016 15:16
[2016-11-08] VITALS (8 sets, daily range): BP systolic 97–121; BP diastolic 63–70; PULSE 77–102; RESP 18–19
[2016-11-08] MEDS: FAMOTIDINE 20 MG TAB PO SCH (08:21)
[2016-11-08] MEDS: carBAMAZepine (XR) 100 MG TABSR PO SCH ×2 (08:21→12:21)
--- NOTE | 2016-11-08 16:49 | DS ---
Date/Time of Note Date/Time of Note DATE: 11/08/16 TIME: 16:44 Discharge Summary Admission/Discharge Info Admit Date/Time Nov 02, 2016 at 10:31 Discharge Date/Time Nov 08, 2016 at 16:05 Discharge Diagnosis 1. Intractable back pain and headache secondary to malfunctioning NATIONAL ACCOUNT DIRECTOR shunt 2. Seizure disorder Patient Condition: Stable Hospital Course This is a 36-year-old male with history of hydrocephalus status post NATIONAL ACCOUNT DIRECTOR shunt and seizures who came to [facility] due to reports of backache and headache. According to the patient he had also initially been to the ER on October 30, 2016 with similar complaints of left AGAINST MEDICAL ADVICE on the same day. He did came back on October 31, 2016 due to reported pain again. He had headache back pain for 1 week duration. Was also reported that he had a fall where he was living but denied any injuries. He was brought to [facility] and had a CT scan of his head that showed dysmorphic brain with callosal agenesis/severe dysgenesis, asymmetric enlargement of the lateral ventricles, right greater than left with the right lateral ventricle, contiguous with prominence of extra-axial spaces and interhemispheric/ parasagittal regions. There is also suggestion of underlying Chiari malformation with right-sided transparietal shunt catheter. Patient was seen by neurosurgeon for his malfunctioning NATIONAL ACCOUNT DIRECTOR shunt. Patient did undergo revision of this with good response. He was otherwise optimized medically. He was resumed on analgesics as needed for pain as well as seizure medication for his history of seizures. During his course of stay he did improve. Was seen by physical therapy and advised to follow a walker for which we did consult case management for this issue. We did await for patient to have bed placement at a boarding care facility and also for him to have clearance with neurosurgeon prior to discharge. Patient was cleared for discharge on November 08, 2016. The plan of care was discussed with the patient and patient did verbalizes understanding. On the day of discharge patient was in stable condition Discussed plan of car with Dr. Wooten Home Meds Reported Medications Carbamazepine* (Carbamazepine* XR) 200 Mg Tab.er.12h, 200 MG PO TID, TAB.SA 10/30/16 Follow-up Plan CONDITION Patient Condition: Stable HOME CARE INSTRUCTIONS: Diet Instructions: Regular FOLLOW UP/APPOINTMENTS Appointments 1. Please follow up with Dr. Maxim Rose in 2 weeks 2. Follow up with your primary care provider in 1 week OTHER ORDERS: Other Orders: 1. Come to the ER if you have worsening headache Primary Care Provider NEIL Rendon Nov 08, 2016 16:49
== END 2016-11-08 16:05 | disposition home or self-care (01) | DRG 31 ==
LOC: FTE 08:49 → PP2 12:42 → OBSVTOIN 11-02 10:31 → MS4 11-04 23:40 → TEL 11-05 15:18 → MS4 11-05 15:18
PROVIDERS: ADMIT Family Medicine; ATTEND Family Medicine
PROC: 00160J6 Bypass Cerebral Ventricle to Peritoneal Cavity with Synthetic Substitute, Open Approach (ICD-10-PCS; 2016-11-04)
PROC: 00P60JZ Removal of Synthetic Substitute from Cerebral Ventricle, Open Approach (ICD-10-PCS; principal; 2016-11-04 11:00)
DX: T85.01XA Breakdown (mechanical) of ventricular intracranial (communicating) shunt, initial encounter (principal); Q04.0 Congenital malformations of corpus callosum; Q04.6 Congenital cerebral cysts; Q07.02 Arnold-Chiari syndrome with hydrocephalus; G40.909 Epilepsy, unspecified, not intractable, without status epilepticus; M54.5 Low back pain; D72.829 Elevated white blood cell count, unspecified
CPT/HCPCS: 36415; 70450; 70490; 71010; 71250; 74176; 80048; 80053; 80061; 80156; 83036; 83735; 84100; 84439; 84443; 84484; 85025; 85610; 85651; 85730; 87040; 87070; 87086; 88300; 93005; 97162; G0378; J1170; J1200; J2060; J2250; J2270; J2405; J2710; J3010; J7999